=== PATIENT | male | born 1965 | race Two or more races ===

== ENCOUNTER 2020-02-25 08:02 | Outpatient (REF) | payer OTHER, SELFPAY | END 2020-02-25 08:03 | disposition home or self-care (01) | LOC: HO.LAB 08:02 | PROVIDERS: Visit Provider Internal Medicine | DX: Z20.828 Contact with and (suspected) exposure to other viral communicable diseases (principal) | CPT/HCPCS: C9803; U0003 ==

== ENCOUNTER → 2020-05-23 15:05 | Outpatient (BNVA) | payer OTHER, SELFPAY | PROVIDERS: PCP Internal Medicine; Visit Provider Nurse Practitioner Family ==

== ENCOUNTER 2020-05-27 10:48 | Outpatient (REF) | payer OTHER, SELFPAY ==
[2020-05-27 11:58] LABS: MANUAL DIFF FLAG NO
[2020-05-27 12:19] LABS: Basophils Absolute Auto 0.1 X10*3/uL (0.0-0.2); Basophils Percent Auto 0.9 % (0-2); Eosinophils Absolute Auto 0.3 X10*3/uL (0.0-0.4); Hematocrit 43.8 % (42-52); Hemoglobin 15.6 g/dl (14.0-18.0); Imm Gran Abs Auto 0.05 X10*3/uL (0.00-0.03); Imm Gran Pct Auto 0.7 % (0.0-0.4); Lymphocytes Absolute Auto 2.1 X10*3/uL (1.2-4.9); Lymphocytes Percent Auto 30.6 % (20-40); Mean Corpuscular HGB Conc 35.6 g/dl (31.0-36.0); Mean Corpuscular Hemoglobin 31.4 pg (27.0-33.0); Mean Corpuscular Volume 88.1 fL (80-98); Mean Platelet Volume 11.1 fL (9.4-12.4); Monocytes Absolute Auto 0.6 X10*3/uL (0.1-1.2); Neutrophils Absolute Auto 3.8 X10*3/uL (2.0-8.3); Neutrophils Percent Auto 54.8 % (45-73); Platelet Count 181 X10*3/uL (160-400); Red Blood Count 4.97 X10*6/uL (4.60-5.80); Red Cell Distribution Width 12.6 % (11.0-16.0); White Blood Count 6.8 X10*3/uL (4.8-10.8)
[2020-05-27 13:10] LABS: Alanine Aminotransferase 141 U/L (0-40); Albumin Level 4.6 g/dL (3.5-5.0); Alkaline Phosphatase 78 U/L (39-117); Anion Gap 12 (12-20); Aspartate Amino Transferase 66 U/L (5-37); Bilirubin Total 1.7 mg/dL (0.0-1.0); Blood Urea Nitrogen 11 mg/dL (9-16); Calcium 9.4 mg/dL (8.4-10.2); Carbon Dioxide 29 mmol/L (22-29); Chloride 105 mmol/L (96-108); Cholesterol 207 mg/dL; Estimated Glomerular Filt Rate > 60; Glucose Fasting 98 mg/dL (60-99); HDL Cholesterol 31 mg/dL; LDL Cholesterol Calculated 144 mg/dl; Potassium 4.2 mmol/L (3.3-5.1); Sodium 142 mmol/L (135-145); Total Protein 7.4 g/dL (6.5-8.0); Triglycerides 160 mg/dL
== END 2020-05-27 10:49 | disposition home or self-care (01) ==
LOC: HO.LAB 10:48
PROVIDERS: PCP Internal Medicine; Visit Provider Nurse Practitioner Family
DX: K21.9 Gastro-esophageal reflux disease without esophagitis (principal); E78.00 Pure hypercholesterolemia, unspecified
CPT/HCPCS: 36415; 80053; 80061; 85025

== ENCOUNTER → 2020-06-14 14:50 | Outpatient (BNVA) | payer OTHER, SELFPAY | PROVIDERS: PCP Internal Medicine; Visit Provider Internal Medicine | DX: Z01.810 Encounter for preprocedural cardiovascular examination (principal); R07.2 Precordial pain; Z79.899 Other long term (current) drug therapy | CPT/HCPCS: 93005 ==

== ENCOUNTER 2020-07-05 07:33 | Outpatient (REF) | payer OTHER, SELFPAY | END 2020-07-05 07:34 | disposition home or self-care (01) | LOC: HO.LAB 07:33 | PROVIDERS: Visit Provider Internal Medicine | DX: Z20.822 Contact with and (suspected) exposure to COVID-19 (principal) | CPT/HCPCS: C9803; U0003; U0005 ==

== ENCOUNTER → 2020-09-27 11:12 | Outpatient (REF) | payer OTHER, SELFPAY ==
--- NOTE | 2020-09-27 11:09 | CA_ITS ---
Acquisition Time: 2020-09-27 11:19:08 Total Exercise Time: 00:09:54 Test Indications: PREOP, CP Medications: SEE CHART Protocol: RON Max HR: 151 BPM 90% of Pred: 167 BPM Max BP: 160/082 mmHG Max Work Load: 11.7 METS Exercise stress test with exercise 9 min 54 sec of Ron protocol, with pleuritic type chest discomfort at baseline which improved during exercise and returned in recovery, with isolated PAC, with normotensive response to exercise, without EKG changes meeting criteria for ischemia. Echo images obtained by tech at rest and immediately post peak exercise. Definity contrast used. Test reviewed with Dr Nevarez. Referred By: Jese Martinez Overread By: JAVIER ANDREW
== END ==
LOC: HO.CARD 11:12
PROVIDERS: PCP Internal Medicine; Visit Provider Internal Medicine
DX: R07.2 Precordial pain (principal)
CPT/HCPCS: 93350; Q9957

== ENCOUNTER → 2020-10-10 12:47 | Outpatient (BNVA) | payer OTHER, SELFPAY | PROVIDERS: PCP Internal Medicine; Visit Provider Nurse Practitioner Family ==

== ENCOUNTER 2020-10-25 11:33 | Outpatient (REF) | payer OTHER, SELFPAY ==
--- NOTE | ~2020-10-25 | XR_ITS ---
EXAMINATION: XR CHEST CLINICAL INFORMATION: Other specified respiratory disorder. COMPARISON: Rib and chest radiograph dated 04/27/2009. TECHNIQUE: 2 views of the chest were obtained. FINDINGS: The lungs are clear. The cardiomediastinal silhouette is normal in size. There is no pleural effusion or pneumothorax. No acute osseous abnormality. XR/XR chest 2V IMPRESSION: No acute cardiopulmonary findings.
== END 2020-10-25 11:34 | disposition home or self-care (01) ==
LOC: HO.HMGCX 11:33
PROVIDERS: PCP Internal Medicine; Visit Provider Nurse Practitioner Family
DX: J98.8 Other specified respiratory disorders (principal)
CPT/HCPCS: 71046

== ENCOUNTER → 2020-11-27 15:01 | Outpatient (BNVA) | payer OTHER, SELFPAY | PROVIDERS: PCP Internal Medicine; Referring Provider Internal Medicine; Visit Provider Surgery ==

== ENCOUNTER → 2020-12-06 14:51 | Outpatient (BNVA) | payer OTHER, SELFPAY | PROVIDERS: PCP Internal Medicine; Visit Provider Nurse Practitioner Family ==

== ENCOUNTER → 2020-12-27 14:41 | Outpatient (BNVA) | payer OTHER, SELFPAY | PROVIDERS: PCP Internal Medicine; Visit Provider Surgery ==

== ENCOUNTER → 2021-02-27 16:16 | Outpatient (BNVA) | payer OTHER, SELFPAY | PROVIDERS: PCP Internal Medicine; Referring Provider Internal Medicine; Visit Provider Nurse Practitioner Family ==

== ENCOUNTER 2021-10-24 09:52 | Day surgery (SDC) | payer BC, SELFPAY ==
--- NOTE | 2021-10-23 08:55 | HO.ANESPROP2 ---
Documented by User: Nikkie Snow NP 10/23/21 08:57 HPI - Anesthesia Eval Consult details Narrative: 56yo M for Upper Endoscopy and Colonoscopy [facility] Active Problems Active Problems: All Active Problems (Updated 02/27/21 @ 16:43 by Cara Zapien [facility]) Pulmonary nodules (Acute) Skin lesion of neck (Acute) Cutaneous skin tags (Acute) Bronchitis (Acute) Respiratory infection (Acute) Precordial chest pain (Acute) Preoperative cardiovascular examination (Acute) Encounter for screening colonoscopy (Acute) Colonoscopy planned (Acute) High cholesterol (Acute) GERD (gastroesophageal reflux disease) (Acute) Past Medical History Medical History Colonoscopy planned Encounter for screening colonoscopy GERD (gastroesophageal reflux disease) High cholesterol Skin lesion of neck Family History Family History Father History of liver cancer Mother No problems noted. Surgical History Surgical History History of esophagogastroduodenoscopy (EGD) History of hand surgery Hx of colonoscopy Social History Social History (Updated 01/04/21 @ 15:33 by FABIEN Manzanares) Household Members: Spouse Housing: House Alcohol intake: current Alcohol intake frequency: holidays/special occasions only Patient Tobacco Use Status: Never used Tobacco e-Cigarette/Vaping Use: Never Used Second Hand Smoke Exposure: No Use of substances other than those prescribed or required for medical reasons: No Are you DNR?: No Advance Directives: No Advance Directives Information Provided: Yes service: No Current occupational status: employed 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 Stress ECHO 09/2020 Protocol: AMARJIT ? Max HR: 151 BPM? 90% of? Pred: 167 BPM Max BP: 160/082 mmHG Max Work Load: 11.7 METS ? Exercise stress test with exercise 9 min 54 sec of Amarjit protocol, with ?pleuritic type chest discomfort at baseline which improved during exercise and ?returned in recovery,? with isolated PAC, with normotensive response to ?exercise, without EKG changes meeting criteria for ischemia. Echo images ?obtained by tech at rest and immediately post peak exercise. Definity contrast ?used. Test reviewed with Dr Nevarez. ? ? STRESS ECHO : ? Technique : ? Images were obtained at rest and immediately post exercise within 1 minute 30 seconds. Definity contrast was used to enhance endicardial definition. Images were obtained in multiple views and compared side to side. ? Findings : ? At rest images were of adequate quality. LV systolic function is normal with normal wall motion. Post exercise images LV was not visualized. ? Findings: ? Non diagnostic study Assessment and Plan Assessment Anesthesia Assessment: Chart Reviewed Documented by User: Christina Bosch MD 10/24/21 10:44 [facility] Past Medical History Medical History Colonoscopy planned Encounter for screening colonoscopy GERD (gastroesophageal reflux disease) High cholesterol Skin lesion of neck Family History Family History Father History of liver cancer Mother No problems noted. Family history of problems with anesthesia: No Surgical History Surgical History History of esophagogastroduodenoscopy (EGD) History of hand surgery Hx of colonoscopy History of Problems with Anesthesia: No Social History Social History (Updated 01/04/21 @ 15:33 by FABIEN Manzanares) Household Members: Spouse Housing: House Alcohol intake: current Alcohol intake frequency: holidays/special occasions only Patient Tobacco Use Status: Never used Tobacco e-Cigarette/Vaping Use: Never Used Second Hand Smoke Exposure: No Use of substances other than those prescribed or required for medical reasons: No Are you DNR?: No Advance Directives: No Advance Directives Information Provided: Yes service: No Current occupational status: employed 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 Allergies Allergy/AdvReac Type Severity Reaction Status Date / Time No Known Allergies Allergy Mild NONE Verified 10/18/21 14:38 Home Medications Medication Instructions Recorded Confirmed Last Taken Type albuterol sulfate 90 mcg/actuation 2 puff PO Q4-6H PRN wheezing 10/18/21 10/18/21 Unknown History aerosol inhaler Exam Airway Mallampati Class: II TM Dist: >3cm Neck ROM: Full Heart: rrr Lungs: cta Assessment and Plan Assessment Anesthesia Assessment: Anesthesia Plan Discussed and Chart Reviewed Final Anesthetic Review Family History of Problems with Anesthesia: No History of Problems with Anesthesia: No NPO: Yes ASA Class: II Final Preanesthetic Review: No Changes in Pt Med Stat, Meds/Allgs Chart Reviewed and Consent Obtained/Reviewed Patient Risk: Intermediate Procedure Risk: Intermediate Anesthetic Plan Anesthetic Plan: MAC: Disposition: Standard PACU
[2021-10-24 10:17] VITALS: BMI 31.3
[2021-10-24 10:27] VITALS: BP 126/71; PULSE 78; RESP 17; TEMP 36.2; O2SAT 97
[2021-10-24 10:30] VITALS: BMI 31.3
[2021-10-24] MEDS: Lactated Ringers 1,000 ML 100 ML IVCONT (10:36)
--- NOTE | 2021-10-24 10:37 | MHC.SHP ---
Pre-Procedural Eval Section A Date of Service: 10/24/21 Section B Chief Complaint: screening,reflux disease Relevant Family History (Specify if Yes): No Relevant Social History: None Present Medications: see Short Stay Collaborative assessment Medical History: Significant History (GERD (gastroesophageal reflux disease) High cholesterol Skin lesion of neck) History of Previous Operations: Relevant previous surgery/procedure and date(s) (History of esophagogastroduodenoscopy (EGD) History of hand surgery Hx of colonoscopy) Allergies: Allergies Allergy/AdvReac Type Severity Reaction Status Date / Time No Known Allergies Allergy Mild NONE Verified 10/18/21 14:38 Review of Systems Sugical H&P ROS: Negative: Constitution, Cardiovascular, Respiratory, Neurological, Psychiatric, Hem-Onc, Allergic/Immunologic, Gastrointestinal, Genitourinary, Musculoskeletal, Integumentary, Endocrine and Eyes/Ears/Nose/Throat Exam Surgical H&P Exam: Normal: HEENT, Normal: Heart, Normal: Lungs, Normal: Extremities, Normal: Abdomen, Normal: Skin and Normal: Neurological Plan Diagnosis/Plan: Unchanged I have reviewed the history and physical and performed a pertinent physical examination on my patient. No changes have occurred unless specified.
--- NOTE | 2021-10-24 10:39 | P.OP_ITS ---
Operative Note Operative Note Date of Service: 10/24/21 Narrative: Operative Information Procedure Description: EGD, Colonoscopy Indication: reflux and screning colonoscopy Anesthesia: MAC FLEXIBLE TRANSORAL UPPER GASTROINTESTINAL ENDOSCOPY AND COLONOSCOPY PROCEDURE NOTE UPPER ENDOSCOPY Consent: Indications for the procedure and potential complications of bleeding, perforation, reaction to medications and missed diagnosis were discussed with the patient and informed consent was obtained. Instrument: Olympus GIF H 190 J mid size upper endoscope Monitoring: Vital signs and clinical assessment, continuous EKG monitoring, Pulse oximetry, Carbon Dioxide monitoring and blood pressure monitoring were done throughout the procedure. Procedure: The patient was placed in the left lateral decubitis position and pre-procedure medications were administered and a bite block was placed. The endoscope was inserted into the mouth and advanced under direct vision to the third part of duodenum. A careful inspection was made as the upper endoscope was withdrawn including a retroflexed examination of the proximal stomach; Findings and interventions are described below. Findings: Larynx:normal Esophagus: GE junction at 40 cm, diaphragm hiatus at 40 cm, v mild esophagitis, bx taken from GEJ Stomach: Normal mucosa. Biopsies were obtained. Grade 2 flap valve on retroflexed examination of the cardia. Duodenum: Normal bulb and descending duodenum, Intervention: Biopsies as noted above COLONOSCOPY Instrument: Olympus variable stiffness pediatric scope 190L Colonoscopy Monitoring: Vital signs and clinical assessment, continuous EKG monitoring, Pulse oximetry, Carbon Dioxide monitoring and blood pressure monitoring were done throughout the procedure. Colon withdrawal time was 9 minutes. Procedure: The patient was placed in the left lateral decubitis position and pre-procedure medications were administered. After a digital rectal examination of the ano-rectum, the video colonoscope was inserted into the rectum and advanced through the colon to the cecum/TI. The colonoscope was slowly withdrawn in a retrograde panoramic fashion and the colon mucosa was carefully examined including a retroflexed view of the rectum. Findings and interventions are described below. Procedure Difficulty: easy Findings: Terminal Ileum-normal right sided retroflexion- nml Cecum:normal Ascending Colon: normal Transverse Colon -normal Descending Colon:normal Sigmoid Colon: normal Rectum: Retroflexion with small internal hemorrhoids, grade I Anorectum - normal Colon preparation: [place] Bowel Preparation Scale Right colon; 3 Transverse colon: 3 Left colon; 3 (0 = Unprepared colon segment with mucosa not seen due to solid stool that cannot be cleared. 1 = Portion of mucosa of the colon segment seen, but other areas of the colon segment not well seen due to staining, residual stool and/or opaque liquid. 2 = Minor amount of residual staining, small fragments of stool and/or opaque liquid, but mucosa of colon segment seen well. 3 = Entire mucosa of colon segment seen well with no residual staining, small fragments of stool or opaque liquid) Impression and Post Procedure Diagnosis: Endoscopy Findings: mild esophagitis Colonoscopy Findings: internal hemorrhoids Plan: Await Pathology results Repeat Colonoscopy in 10 years or earlier if clinically indicated High fiber diet leaflet avoid straining at stool, epsom salts and sitz bath, anusol supps or cream cont with PPI Above findings were reviewed with the patient and relevant handouts were provided if indicated.
[2021-10-24 12:19] VITALS: BP 114/71; PULSE 67; RESP 16; TEMP 36.1; O2SAT 95
[2021-10-24 12:34] VITALS: BP 140/62; PULSE 63; RESP 16; O2SAT 97
[2021-10-24 12:50] VITALS: BP 152/86; PULSE 66; RESP 16; TEMP 36.2; O2SAT 97
== END 2021-10-24 15:35 | disposition home or self-care (01) ==
PROVIDERS: PCP Internal Medicine; Visit Provider Internal Medicine Gastroenterology
PROC: (CPT 45378; principal; 2021-10-24 11:50)
DX: Z12.11 Encounter for screening for malignant neoplasm of colon (principal); K64.0 First degree hemorrhoids; K21.9 Gastro-esophageal reflux disease without esophagitis; K20.80 Other esophagitis without bleeding; K44.9 Diaphragmatic hernia without obstruction or gangrene; E78.00 Pure hypercholesterolemia, unspecified
CPT/HCPCS: 45378; 43239; 88305; 88342

== ENCOUNTER 2021-11-28 11:07 | Outpatient (REF) | payer BC, SELFPAY ==
[2021-11-28 12:59] LABS: Alanine Aminotransferase 135 U/L (0-40); Albumin Level 4.7 g/dL (3.5-5.0); Alkaline Phosphatase 80 U/L (39-117); Aspartate Amino Transferase 73 U/L (5-37); Bilirubin Direct 0.5 mg/dL (0.0-0.5); Bilirubin Total 1.6 mg/dL (0.0-1.0); Total Protein 7.7 g/dL (6.5-8.0)
== END 2021-11-28 11:08 | disposition home or self-care (01) ==
LOC: HO.LAB 11:07
PROVIDERS: PCP Internal Medicine; Visit Provider Nurse Practitioner Family
DX: R10.9 Unspecified abdominal pain (principal)
CPT/HCPCS: 36415; 80076

== ENCOUNTER 2021-12-13 13:30 | Outpatient (REF) | payer BC, SELFPAY | END 2021-12-13 13:31 | disposition home or self-care (01) | LOC: HO.LNP 13:30 | PROVIDERS: PCP Internal Medicine; Visit Provider Surgery | DX: L91.8 Other hypertrophic disorders of the skin (principal) | CPT/HCPCS: 11200; 11201; 11421; 88304; 88305 ==

== ENCOUNTER 2022-02-19 16:17 | Outpatient (REF) | payer BC, SELFPAY ==
[2022-02-19 17:32] LABS: INTERNATIONAL NORM RATIO 1.1 (0.9-1.1); Prothrombin Time 12.7 SEC (10.0-13.1)
[2022-02-19 18:02] LABS: C Reactive Protein 0.18 mg/dL (< or = 0.50); Ferritin 296 ng/mL (20-250); Gamma Glutamyl Transpeptidase 44 U/L (11-51); Iron 90 mcg/dL (45-160); Percent Iron Saturation 27 % (15-50); Total Iron Binding Capacity 329 mcg/dL (228-428); Unsaturated Iron Binding 239 ug/dL
[2022-02-20 07:47] LABS: HBS Num1 201.96 mIU/mL (0-7.99); HBc Num1 0.17 S/CO (0.00-0.79); HIV AB/AG Nonreactive (Nonreactive); HIV Num 1 0.07 S/CO (0.00-0.99); Hepatitis A Antibody IgM 0.13 Index (0-0.79); Hepatitis B Core Antibody Nonreactive (Nonreactive); Hepatitis B Surface Antigen Negative (Negative); ~HepC Num1 0.26 S/CO (0.00-0.79); ~Hepatitis A Antibody IgM Nonreactive (Nonreactive); ~Hepatitis B Surface Antibody REACTIVE (Nonreactive); ~Hepatitis C Antibody Nonreactive (Nonreactive)
[2022-02-21 13:43] LABS: Alpha Fetoprotein 5.4 ng/mL (<6.1)
[2022-02-21 14:32] LABS: Ceruloplasmin 23 mg/dL (18-36)
[2022-02-25 16:49] LABS: Smooth Muscle Antibody 38 U (<20)
[2022-02-28 11:44] LABS: Mitochondrial Antibodies NEGATIVE (NEGATIVE)
== END 2022-02-19 16:18 | disposition home or self-care (01) ==
LOC: HO.LAB 16:17
PROVIDERS: PCP Internal Medicine; Visit Provider Nurse Practitioner Family
DX: R79.89 Other specified abnormal findings of blood chemistry (principal); R74.8 Abnormal levels of other serum enzymes; K92.2 Gastrointestinal hemorrhage, unspecified; K58.9 Irritable bowel syndrome, unspecified
CPT/HCPCS: 36415; 82105; 82390; 82728; 82977; 83540; 85610; 86015; 86140; 86255; 86256; 86704; 86706; 86709; 86803; 87340; 87389

== ENCOUNTER 2022-04-04 08:52 | Outpatient (REF) | payer BC, SELFPAY ==
--- NOTE | ~2022-04-04 | US_ITS ---
EXAMINATION: US COMPLETE ABDOMEN WITH LIVER ELASTOGRAPHY CLINICAL INFORMATION: Abnormal findings of blood chemistry. COMPARISON: None. TECHNIQUE: Real-time imaging of the abdominal viscera. Noninvasive ultrasound liver fibrosis assessment is performed using Scott ElastPQ point quantification shear wave elastography (2D-SWE) with a C5-2 MHz transducer. Multiple elastography samples are obtained. FINDINGS: PANCREAS: The visualized pancreatic head and body are normal in appearance. The tail of the pancreas is obscured from visualization by the overlying bowel gas. ABDOMINAL AORTA: The proximal, middle, and distal aortic segments are normal in caliber. INFERIOR VENA CAVA: Visualized portions are normal. LIVER: Normal. The liver demonstrates normal size, contour and increased echogenicity. No focal lesion or intrahepatic biliary duct dilatation. The right lobe measures 13.5 cm in length. The left lobe measures 10.2 cm in length. Portal flow is hepatopedal/ Shear wave liver elastography median stiffness is 12.7 m/s (reference: normal median stiffness is 1.3 m/s or less). IQR/median stiffness to assess sampling precision is 0.13 (reference: good quality data set is IQR/median stiffness of 0.15 or less). GALLBLADDER: Normal. The gallbladder is physiologically distended without evidence of stones, sludge, polyps, wall thickening or pericholecystic fluid. COMMON BILE DUCT: Normal in caliber measuring 0.3 cm in diameter. RIGHT KIDNEY: Normal. No hydronephrosis. No renal calculi or focal parenchymal lesions. The kidney measures 11.2 cm in maximum dimension. LEFT KIDNEY: Normal. No hydronephrosis. No renal calculi or focal parenchymal lesions. The kidney measures 11.4 cm in maximum dimension. SPLEEN: Normal. The spleen measures 12.0 cm in maximum dimension. FREE FLUID: None. US/US abdomen comp w elastography IMPRESSION: 1. Mild hepatic steatosis 2. Liver elastography: Median liver stiffness measures 1.27 m/s corresponding to high probability of normal. REFERENCE: Society of Radiologists in Ultrasound Liver Stiffness Thresholds (2020): LIVER STIFFNESS THRESHOLDS: *Liver Stiffness equal or less than 1.3 m/s: High probability of being normal. *Liver Stiffness less than 1.7 m/s: In the absence of other known clinical signs, rules out compensated advanced chronic liver disease. *Liver Stiffness 1.7-2.1 m/s: Suggestive of compensated advanced chronic liver disease but need further test for confirmation. *Liver Stiffness over 2.1 m/s: Rules in compensated advanced chronic liver disease. *Liver Stiffness over 2.4 m/s: Suggestive of clinically significant portal hypertension. QUALITY OF DATA SET: *IQR/Median value equal or less than 0.15 implies a quality data set. *IQR/Median value over 0.15 implies a poor quality data set. SIGNIFICANT CHANGE FROM PRIOR EXAM: Significant change if liver stiffness measurement is 10% or greater from prior exam. OTHER CONSIDERATIONS: The stage of liver fibrosis may be overestimated in the setting of acute hepatitis, liver inflammation, elevated liver function tests, hepatic vascular congestion, obstructive cholestasis, non-fasting state, and infiltrative diseases such as amyloidosis and lymphoma. In some patients with NAFLD, the liver stiffness thresholds for compensated advanced chronic liver disease may be lower. In causes other than viral hepatitis and NAFLD, liver stiffness thresholds are not well established.
== END 2022-04-04 08:53 | disposition home or self-care (01) ==
LOC: HO.US 08:52
PROVIDERS: PCP Internal Medicine; Visit Provider Nurse Practitioner Family
DX: R79.89 Other specified abnormal findings of blood chemistry (principal)
CPT/HCPCS: 76705; 76981

== ENCOUNTER 2022-05-07 15:49 | Outpatient (REF) | payer BC, SELFPAY ==
[2022-05-07 17:32] LABS: Alanine Aminotransferase 129 U/L (0-40); Albumin Level 4.4 g/dL (3.5-5.0); Alkaline Phosphatase 76 U/L (39-117); Aspartate Amino Transferase 87 U/L (5-37); Bilirubin Direct 0.3 mg/dL (0.0-0.5); Bilirubin Total 1.2 mg/dL (0.0-1.0)
== END 2022-05-07 15:50 | disposition home or self-care (01) ==
LOC: HO.LAB 15:49
PROVIDERS: PCP Internal Medicine; Visit Provider Nurse Practitioner Family
DX: R10.9 Unspecified abdominal pain (principal); R79.89 Other specified abnormal findings of blood chemistry; K21.9 Gastro-esophageal reflux disease without esophagitis; Z83.79 Family history of other diseases of the digestive system
CPT/HCPCS: 36415; 80076; 81256

== ENCOUNTER → 2022-08-23 08:06 | Outpatient (BNVA) | payer SELFPAY | PROVIDERS: PCP Internal Medicine ==

== ENCOUNTER → 2022-08-27 15:58 | Outpatient (BNVA) | payer BC, SELFPAY | PROVIDERS: PCP Internal Medicine; Visit Provider Nurse Practitioner Family ==

== ENCOUNTER 2023-02-18 15:58 | Outpatient (AMB) | payer BC, SELFPAY ==
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
[2023-02-18 16:06] VITALS: BP 144/78; PULSE 72; BMI 36.6
== END 2023-02-18 16:28 | disposition home or self-care (01) ==
PROVIDERS: PCP Internal Medicine; Visit Provider Nurse Practitioner Family
DX: Z83.79 Family history of other diseases of the digestive system (principal); Z80.0 Family history of malignant neoplasm of digestive organs; R74.01 Elevation of levels of liver transaminase levels; K21.9 Gastro-esophageal reflux disease without esophagitis
CPT/HCPCS: 99213

== ENCOUNTER → 2023-02-18 15:58 | Outpatient (BNVA) | payer BC, SELFPAY | PROVIDERS: PCP Internal Medicine; Visit Provider Nurse Practitioner Family ==

== ENCOUNTER 2023-04-18 07:53 | Outpatient (REF) | payer BC, SELFPAY ==
--- NOTE | ~2023-04-18 | US_ITS ---
EXAMINATION: US ABDOMEN LIMITED CLINICAL INFORMATION: Other specified abnormal findings of blood chemistry. COMPARISON: Ultrasound abdomen complete 04/04/2022. TECHNIQUE: Real-time imaging of the right upper quadrant abdominal viscera. FINDINGS: PANCREAS: Not well seen due to shadowing from overlying bowel gas. LIVER: The liver is normal in size. The liver contour is normal. Increased parenchymal echogenicity. No focal hepatic lesion. There is no intrahepatic biliary duct dilatation seen. GALLBLADDER: Normal. The gallbladder is physiologically distended without evidence of stones, sludge, polyps, wall thickening or pericholecystic fluid. COMMON BILE DUCT: Normal in caliber measuring 0.2 cm in diameter. RIGHT KIDNEY: Multiple nonobstructing punctate hyperechoic foci that could represent calculi versus vascular calcifications. No hydronephrosis or focal parenchymal lesions. The kidney measures 10.8 cm in maximum dimension. FREE FLUID: None. US/US abdomen limited IMPRESSION: 1. Increased parenchymal echogenicity of the liver is a nonspecific finding but most commonly on the basis of diffuse hepatocellular disease such as hepatic steatosis. 2. Multiple punctate hyperechoic foci in the right kidney could represent nonobstructing calculi versus vascular calcifications.
== END 2023-04-18 07:54 | disposition home or self-care (01) ==
LOC: HO.US 07:53
PROVIDERS: PCP Internal Medicine; Visit Provider Nurse Practitioner Family
DX: R79.89 Other specified abnormal findings of blood chemistry (principal)
CPT/HCPCS: 76705

== ENCOUNTER 2023-07-09 10:03 | Outpatient (AMB) | payer BC, SELFPAY ==
--- NOTE | 2023-07-09 10:06 | MHC.PC.OV ---
Vital Signs 07/09/23 10:08 Height 5 ft 7 in Weight 230 lb 2 oz BMI 36.0 BP 120/82 Blood Pressure Location Lt brachial Position Sitting Pulse 82 Pulse Source Pulse Oximeter Pulse Oximetry (%) 98 Oxygen Delivery Method Room Air Intake Visit Reasons: Bio life forms Intake Note: Patient is here today for Bio Life forms to be filled out. Representative Personal Service Required: No Chemistry Specialist: Not Required per policy Accompanied by: Self / Same As Patient Allergies No Known Allergies Allergy (Mild, Verified 07/09/23 10:11) NONE Tobacco use date assessed: 07/09/23 Dental Screening Dental Screen Date: 07/09/23 Did you have a dental visit in the last 12 months?: Yes Did you have a dental problem in the last 6 months where you did not have access to dental care?: No Was dental information given to patient?: Patient has dentist HPI HPI Comments History of Present Illness Details 57-year-old male presents to the office to discuss his medical conditions. Donates plasma twice a week. For him to continue to donate plasma, he needs a clearance certificate. Patient is at baseline state of health. Able to function and do all activities of daily living. Minimal exercise. Nonsmoker and minimal consumption of alcohol. [facility] Medical History (Updated 07/09/23 @ 11:09 by Louis Marcum MD) Obstructive sleep apnea Family history of cirrhosis of liver Family history of liver cancer Transaminitis Skin lesion of neck Encounter for screening colonoscopy Colonoscopy planned High cholesterol GERD (gastroesophageal reflux disease) Surgical History History of dental surgery History of surgical removal of skin lesion (~12/13/21) History of hand surgery History of esophagogastroduodenoscopy (EGD) Hx of colonoscopy Family History Father History of liver cancer Mother No problems noted. 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 1. Little interest or pleasure in doing things: not at all 2. Feeling down, depressed, or hopeless: not at all 3. Trouble falling or staying asleep, or sleeping too much: not at all 4. Feeling tired or having little energy: not at all 5. Poor appetite or overeating: not at all 6. Feeling bad about yourself - or that you are a failure or have let yourself or your family down: not at all 7. Trouble concentrating on things, such as reading the newspaper or watching television: not at all 8. Moving or speaking so slowly that other people could have noticed. Or the opposite - being so fidgety or restless that you have been moving around a lot more than usual: not at all 9. Thoughts that you would be better off or of hurting yourself in some way: not at all Total score: 0 Depression Screening Interpretation: Negative Depression Screening Done: Yes Source: Developed by Drs. Jair Tolliver, Mignon Cespedes, Eddie Renee and colleagues, with an educational rhianna from [employer]. Thrive Questionnaire Date Thrive assessed: 07/09/23 I am a: Patient What is your living situation today?: I have a steady place to live Within the past 12 months, did the food you bought not last and you didn't have the money to get more?: Never true Within the past 12 months, did you worry whether your food would run out before you got money to buy more?: Never true Do you have trouble paying for medicines?: No Do you have trouble getting transportation to medical appointments?: No Do you have trouble paying your heating and electricity bill?: No Do you have trouble taking care of your child, family member or friend?: No Do you have trouble with day-to-day activities such as bathing, preparing meals, shopping, managing finances, etc.?: No Are you currently unemployed and looking for a job?: No Are you interested in more education?: No Currently or been in a relationship where the following occur: no concerns reported THRIVE Score: 0 AUDIT C Alcohol Use Questionnaire (AUDIT-C) 1. How often do you have a drink containing alcohol?: Monthly or less 2. How many drinks containing alcohol do you have on a typical day when you are drinking?: 1 or 2 Total Score: 1 AGATHA-7 AMB Questionnaire AGATHA-7 Date AGATHA - 7 assessed: 07/09/23 Feeling nervous, anxious, or on edge: 0 = Not at all Not being able to stop or control worryin = Not at all Worrying too much about different things: 0 = Not at all Trouble relaxin = Not at all Being so restless that it is hard to sit still: 0 = Not at all Becoming easily annoyed or irritable: 0 = Not at all Feeling afraid as if something awful might happen: 0 = Not at all Total AGATHA-7 score (0-4 normal; 5-9 mild; 10-14 moderate; 15-21 severe): 0 Source: Developed by Drs. Jair Tolliver, Mignon Cespedes, Eddie Renee and colleagues, with an educational rhianna from [employer]. Physical exam (Primary Care) Vital Signs: Last Vital Signs Pulse 82 07/09/23 10:08 BP 120/82 07/09/23 10:08 Pulse Ox 98 07/09/23 10:08 Oxygen Delivery Method Room Air 07/09/23 10:08 BMI result Body Mass Index 36.0 Tobacco/Smoking Status: Tobacco use Status Tobacco use date assessed 07/09/23 07/09/23 10:15 Patient Tobacco Use Status Never used Tobacco 07/09/23 10:15 e-Cigarette/Vaping Use Never Used 07/09/23 10:15 PHQ-9: PHQ-9 Score PHQ-9: Total score 0 07/09/23 10:15 Depression Screening Interpretation: Negative Thrive Assessment: Date of Thrive Assessment Date Thrive assessed 07/09/23 07/09/23 10:15 Currently or been in a relationship where the following occur: no concerns reported Const General: cooperative and healthy appearing Nutritional Appearance: well nourished Orientation/consciousness: patient oriented x3 Limitations: no limitations HENMT Head: Yes normal to inspection Eyes General: appearance normal, both eyes and all related structures Neck Neck: Yes normal visual inspection Chest Chest palpation & inspection: normal palpation of entire chest wall Resp Effort & Inspection: normal respiratory effort Neuro General: patient oriented x3 Assessment and Plan Assessment & Plan (1) GERD (gastroesophageal reflux disease): Code(s): K21.9 - Gastro-esophageal reflux disease without esophagitis Qualifiers: Esophagitis presence: esophagitis presence not specified Qualified Code(s): K21.9 - Gastro-esophageal reflux disease without esophagitis Plan: Condition is stable. Continue current medications. Blood work has been ordered. (2) High cholesterol: Code(s): E78.00 - Pure hypercholesterolemia, unspecified (3) Obstructive sleep apnea: Code(s): G47.33 - Obstructive sleep apnea (adult) (pediatric) Plan: Patient uses CPAP at home. Will call with results of the blood work. Orders: Orders Lipid Panel Today E78.00 - Pure hypercholesterolemia, unspecified, K21.9 - Gastro-esophageal reflux disease without esophagitis Thyroid Stimulating Hormone Today E78.00 - Pure hypercholesterolemia, unspecified, K21.9 - Gastro-esophageal reflux disease without esophagitis UA and rflx microscopic Today E78.00 - Pure hypercholesterolemia, unspecified, K21.9 - Gastro-esophageal reflux disease without esophagitis Basic Metabolic Panel Today E78.00 - Pure hypercholesterolemia, unspecified, K21.9 - Gastro-esophageal reflux disease without esophagitis Complete Blood Count no Diff Today E78.00 - Pure hypercholesterolemia, unspecified, K21.9 - Gastro-esophageal reflux disease without esophagitis Liver Panel Today E78.00 - Pure hypercholesterolemia, unspecified, K21.9 - Gastro-esophageal reflux disease without esophagitis Medications: Refilled omeprazole 40 mg PO DAILY 90 caps 2RF K21.9 - Gastro-esophageal reflux disease without esophagitis Coding Level of Care Code Est Pt Level 4 (10984) Diagnoses Gastroesophageal reflux disease, unspecified whether esophagitis present K21.9 Esophagitis presence: esophagitis presence not specified High cholesterol E78.00 Obstructive sleep apnea G47.33
[2023-07-09 10:08] VITALS: BP 120/82; PULSE 82; O2SAT 98; BMI 36.0
== END 2023-07-09 11:00 | disposition home or self-care (01) ==
PROVIDERS: PCP Internal Medicine; Visit Provider Internal Medicine
DX: K21.9 Gastro-esophageal reflux disease without esophagitis (principal); E78.00 Pure hypercholesterolemia, unspecified; G47.33 Obstructive sleep apnea (adult) (pediatric)
CPT/HCPCS: 99214

== ENCOUNTER 2023-07-30 06:16 | Outpatient (REF) | payer BC, SELFPAY ==
[2023-07-30 07:53] LABS: Hematocrit 41.9 % (42.0-52.0); Hemoglobin 15.2 g/dl (14.0-18.0); Mean Corpuscular HGB Conc 36.3 g/dl (31.0-36.0); Mean Corpuscular Hemoglobin 31.4 pg (27.0-33.0); Mean Corpuscular Volume 86.6 fL (80.0-98.0); Mean Platelet Volume 10.6 fL (9.4-12.4); Platelet Count 185 X10*3/uL (160-400); Red Blood Count 4.84 X10*6/uL (4.60-5.80); Red Cell Distribution Width 12.6 % (11.0-16.0); White Blood Count 7.1 X10*3/uL (4.8-10.8)
[2023-07-30 08:08] LABS: Appearance Urine Clear; Color Urine Yellow; Glucose Urine UA Negative (Negative); Leukocyte Esterase Urine Negative (Negative); Nitrite Urine Negative (Negative); PH 6.5 (5.0-9.0); Specific Gravity - Urine 1.015 (1.005-1.025); Urine Blood Negative (Negative); Urine Ketones Negative (Negative); Urine Protein Negative (Neg-Trace)
[2023-07-30 08:47] LABS: Alanine Aminotransferase 94 U/L (0-40); Albumin Level 4.2 g/dL (3.5-5.0); Alkaline Phosphatase 82 U/L (39-117); Anion Gap 13 (12-20); Aspartate Amino Transferase 49 U/L (5-37); Bilirubin Direct 0.2 mg/dL (0.0-0.5); Bilirubin Total 0.7 mg/dL (0.0-1.0); Blood Urea Nitrogen 8 mg/dL (9-16); Calcium 9.2 mg/dL (8.4-10.2); Carbon Dioxide 26 mmol/L (22-29); Chloride 105 mmol/L (96-108); Cholesterol 168 mg/dL (<200); Estimated Glomerular Filt Rate > 60; Glucose Random 98 mg/dL (60-115); HDL Cholesterol 32 mg/dL (>40); LDL Cholesterol Calculated 94 mg/dL (<100); Potassium 3.1 mmol/L (3.3-5.1); Sodium 141 mmol/L (135-145); Total Protein 7.1 g/dL (6.5-8.0); Triglycerides 214 mg/dL (<150)
== END 2023-07-30 06:17 | disposition home or self-care (01) ==
LOC: HO.LAB 06:16
PROVIDERS: PCP Internal Medicine; Visit Provider Internal Medicine
DX: K21.9 Gastro-esophageal reflux disease without esophagitis (principal); E78.00 Pure hypercholesterolemia, unspecified
CPT/HCPCS: 36415; 80048; 80061; 80076; 81003; 84443; 85027

== ENCOUNTER 2023-08-19 15:07 | Outpatient (AMB) | payer BC, SELFPAY ==
--- NOTE | 2023-08-19 15:12 | A.OFFPC_ITS ---
Vital Signs 08/19/23 15:13 Height 5 ft 7 in Weight 229 lb BMI 35.9 BP 128/68 Blood Pressure Location Lt brachial Position Sitting Pulse 71 Pulse Source Pulse Oximeter Pulse Oximetry (%) 98 Oxygen Delivery Method Room Air Intake Visit Reasons: Neck skin getting dark/DM concern Intake Note: Patient is here to follow up on Neck skin getting dark, lab results. Electrical Installation Supervisor Required: No Marzipan Molder: Not Required per policy Accompanied by: Self / Same As Patient Allergies No Known Allergies Allergy (Mild, Verified 08/19/23 16:50) NONE Medication List - Last Reconciled 08/19/23 by Louis Marcum MD azithromycin take 500 mg today (day 1), then 250 mg for 4 days (days 2-5) PO famotidine (Pepcid) 20 mg PO BEDTIME omeprazole 40 mg PO DAILY potassium chloride 20 mEq (15 mL) PO DAILY Tobacco use date assessed: 08/19/23 Dental Screening Dental Screen Date: 07/09/23 HPI Neck skin getting dark/DM concern HPI Details 58-year-old male presents to the office for a follow-up visit. Patient would like to have a rash on the side of the neck evaluated. Darkened area with skin thickening. No symptoms of itching or discomfort. Blood work done during the last office visit showed low potassium. Patient took supplementation for a few days and then stopped. It was complaining of epigastric discomfort and belching. Symptoms have subsided. In addition, patient has been complaining of a sore throat with sinus congestion. Difficulty swallowing. Postnasal drip with no fever or chills. [facility] Medical History (Updated 07/09/23 @ 11:09 by Louis Marcum MD) Obstructive sleep apnea Family history of cirrhosis of liver Family history of liver cancer Transaminitis Skin lesion of neck Encounter for screening colonoscopy Colonoscopy planned High cholesterol GERD (gastroesophageal reflux disease) Surgical History History of dental surgery History of surgical removal of skin lesion (~12/13/21) History of hand surgery History of esophagogastroduodenoscopy (EGD) Hx of colonoscopy Family History Father History of liver cancer Mother No problems noted. 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 Jair Tolliver, Mignon Cespedes, Eddie Renee and colleagues, with an educational rhianna from [employer]. Physical exam (Primary Care) Vital Signs: Last Vital Signs Pulse 71 08/19/23 15:13 BP 128/68 08/19/23 15:13 Pulse Ox 98 08/19/23 15:13 Oxygen Delivery Method Room Air 08/19/23 15:13 Care Plan Goal for BP management: Blood pressure is in range. BMI result Body Mass Index 35.9 Tobacco/Smoking Status: Tobacco use Status Tobacco use date assessed 08/19/23 08/19/23 15:15 Patient Tobacco Use Status Never used Tobacco 08/19/23 15:15 e-Cigarette/Vaping Use Never Used 08/19/23 15:15 Thrive Assessment: Date of Thrive Assessment Date Thrive assessed 07/09/23 08/19/23 15:15 Const General: cooperative and healthy appearing Nutritional Appearance: well nourished Orientation/consciousness: patient oriented x3 Limitations: no limitations HENMT Head: Yes normal to inspection Eyes General: appearance normal, both eyes and all related structures Neck Neck: Yes normal visual inspection Chest Chest palpation & inspection: normal palpation of entire chest wall Resp Effort & Inspection: normal respiratory effort Skin Other: Neck: Black and, thickened skin on the side of the neck with striae Neuro General: patient oriented x3 Results AMB Hemoglobin A1c AMB Hemoglobin A1c 5.3 % Last Edit by FABIEN Manzanares on 08/19/23 16:14 Results Reviewed Results Reviewed: Laboratory Last Values Hgb A1c (Clinic) 5.3 % (4.0-6.0) 08/19/23 16:10 Assessment and Plan Assessment & Plan (1) Hypokalemia: Code(s): E87.6 - Hypokalemia Plan: Repeat blood work has been ordered. Will call with the results. (2) Rash: Code(s): R21 - Rash and other nonspecific skin eruption Plan: Differential diagnosis includes acanthosis nigricans. A1c was not in diabetic or prediabetic range. (3) Upper respiratory tract infection: Code(s): J06.9 - Acute upper respiratory infection, unspecified Plan: Antibiotics ordered. Increase fluid intake. Tylenol for aches and pains. If symptoms worsen, follow-up here for a recheck. Orders: Orders Basic Metabolic Panel Today E87.6 - Hypokalemia AMB Hemoglobin A1c Today Z13.9 - Encounter for screening, unspecified Medications: New azithromycin take 500 mg today (day 1), then 250 mg for 4 days (days 2-5) PO 6 tabs 0RF Coding Level of Care Code Est Pt Level 4 (07784) Complex EM visit Add On G2211 Diagnoses Hypokalemia E87.6 Rash R21 Upper respiratory tract infection J06.9
[2023-08-19 15:13] VITALS: BP 128/68; PULSE 71; O2SAT 98; BMI 35.9
== END 2023-08-19 16:51 | disposition home or self-care (01) ==
PROVIDERS: PCP Internal Medicine; Visit Provider Internal Medicine
DX: E87.6 Hypokalemia (principal); R21 Rash and other nonspecific skin eruption; J06.9 Acute upper respiratory infection, unspecified; Z13.9 Encounter for screening, unspecified
CPT/HCPCS: 83036; 99214

== ENCOUNTER 2023-08-20 15:46 | Outpatient (AMB) | payer BC, SELFPAY ==
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
[2023-08-20 15:58] VITALS: BP 150/78; PULSE 76; O2SAT 97; BMI 35.8
== END 2023-08-20 16:21 | disposition home or self-care (01) ==
PROVIDERS: PCP Internal Medicine; Visit Provider Nurse Practitioner Family
DX: Z83.79 Family history of other diseases of the digestive system (principal); Z80.0 Family history of malignant neoplasm of digestive organs; R74.01 Elevation of levels of liver transaminase levels; K21.9 Gastro-esophageal reflux disease without esophagitis
CPT/HCPCS: 99213

== ENCOUNTER → 2023-08-20 15:46 | Outpatient (BNVA) | payer BC, SELFPAY | PROVIDERS: PCP Internal Medicine; Visit Provider Nurse Practitioner Family ==

== ENCOUNTER 2024-01-01 14:24 | Outpatient (AMB) | payer BC, SELFPAY ==
--- NOTE | 2024-01-01 14:42 | AM.OFFWIN_ITS ---
Intake Vital Signs 01/01/24 14:43 Height 5 ft 7 in Weight 228 lb BMI 35.7 BP 106/70 Blood Pressure Location Rt brachial Position Sitting Pulse 72 Pulse Source Pulse Oximeter Pulse Oximetry (%) 98 Oxygen Delivery Method Room Air Intake Visit Reasons: EP Pain in lt neck/shoulder Intake Note: Patient here for neck and shoulder pain that has been going on for a few weeks. Patient Tobacco Use Status: Never used Tobacco Allergies No Known Allergies Allergy (Mild, Verified 01/01/24 14:44) NONE Do you need a note to return to daycare/school/sports/work: No HPI HPI Comments History of Present Illness Details Patient is a 58-year-old male complaining of 10 days of left-sided neck pain that radiates into his left shoulder. He states it feels like there is a knot underneath his shoulder blade. 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 He tells me he can move left and right okay with no problem right now. He does have an appointment on January 11 with his PCP. He has not tried taking any medications or doing anything to make it feel better. He denies any injury. He states he just woke up 1 day and it felt like this [facility] Medical History Obstructive sleep apnea Family history of cirrhosis of liver Family history of liver cancer Transaminitis Skin lesion of neck Encounter for screening colonoscopy Colonoscopy planned High cholesterol GERD (gastroesophageal reflux disease) Surgical History History of dental surgery History of surgical removal of skin lesion (~12/13/21) History of hand surgery History of esophagogastroduodenoscopy (EGD) Hx of colonoscopy Family History Father History of liver cancer Mother No problems noted. 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 Cognitive needs: No Hearing needs: No Vision needs: No Review of Systems Const All systems reviewed & are unremarkable except as noted in HPI and below Physical Exam Vital Signs: Last Vital Signs Pulse 72 01/01/24 14:43 BP 106/70 01/01/24 14:43 Pulse Ox 98 01/01/24 14:43 Oxygen Delivery Method Room Air 01/01/24 14:43 BMI result Body Mass Index 35.7 Const General: cooperative, healthy appearing and comfortable Orientation/consciousness: patient oriented x3 HEENT Head: Yes normal to inspection and Yes normocephalic General nose exam: Normal external nose present Face and sinus: Yes normal facial exam Eyes General: appearance normal, both eyes and all related structures Resp Effort & Inspection: normal respiratory effort and able to speak in complete sentences General: Yes no CVA tenderness Back/Spine/Pelvis Back: no CVA tenderness Cervical Spine: cervical ROM normal, cervical spasm (and left shoulder (rhomboids)) and No Cervical spine tenderness Thoracic/Lumbar Spine: thoracic and lumbar spine normal to inspection and No thoracic spinal tenderness Neuro General: patient oriented x3 Assessment & Plan Assessment & Plan (1) Muscle spasm: Code(s): M62.838 - Other muscle spasm Plan: Recommended using Aleve ATC and cyclobenzaprine for the next few days but I did caution not to drive a vehicle or drink alcohol while taking the muscle relaxer. Recommended he keep his appointment with his PCP on January 11 to follow up if no improvement (2) Neck pain on left side: Code(s): M54.2 - Cervicalgia Plan: See above Plan See above Medications: New cyclobenzaprine 5 mg PO Q8H PRN 15 tabs 0RF Muscle Spasm Coding Level of Care Code Est Pt Level 3 (88164) Diagnoses Muscle spasm M62.838 Neck pain on left side M54.2
[2024-01-01 14:43] VITALS: BP 106/70; PULSE 72; O2SAT 98; BMI 35.7
== END 2024-01-01 15:58 | disposition home or self-care (01) ==
PROVIDERS: PCP Internal Medicine; Visit Provider Physician Assistant
DX: M62.838 Other muscle spasm (principal); M54.2 Cervicalgia

== ENCOUNTER → 2024-01-01 14:24 | Outpatient (BNVA) | payer BC, SELFPAY | PROVIDERS: PCP Internal Medicine ==

== ENCOUNTER 2024-01-12 07:59 | Outpatient (AMB) | payer BC, SELFPAY ==
--- NOTE | 2024-01-12 08:04 | A.OFFPC_ITS ---
Vital Signs 01/12/24 08:05 Height 5 ft 7 in Weight 228 lb 6 oz BMI 35.8 BP 130/70 Blood Pressure Location Lt brachial Position Sitting Pulse 74 Pulse Source Pulse Oximeter Pulse Oximetry (%) 97 Oxygen Delivery Method Room Air Intake Visit Reasons: Neck pain Intake Note: Patient is here to follow up on Neck pain. Request a referral for chiropractor and massage therapist. Medical Auditor Required: No Flight Test Supervisor: Not Required per policy Accompanied by: Self / Same As Patient Allergies No Known Allergies Allergy (Mild, Verified 01/12/24 08:35) NONE Medication List - Last Reconciled 01/12/24 by Louis Marcum MD cyclobenzaprine 5 mg PO Q8H PRN famotidine (Pepcid) 20 mg PO BEDTIME omeprazole 40 mg PO DAILY Tobacco use date assessed: 01/12/24 Dental Screening Dental Screen Date: 07/09/23 HPI Neck pain HPI Details 58-year-old male presents to the office to discuss his chronic medical conditions. Patient is complaining of persistent neck pain for the past 2 months. He was seen in a walk-in clinic and given medications. He had minimal relief with the medications. Pain is present on the back of the neck radiating to either office shoulders. 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 He is entitled to therapeutic massages and also would like to see a chiropractor. Patient is compliant with medications. He takes the omeprazole only occasionally. Has not been exercising or following any particular diet. [facility] Medical History (Updated 01/12/24 @ 08:42 by Louis Marcum MD) Class 2 severe obesity with body mass index (BMI) of 35 to 39.9 with serious comorbidity Obstructive sleep apnea Family history of cirrhosis of liver Family history of liver cancer Transaminitis Skin lesion of neck Encounter for screening colonoscopy Colonoscopy planned High cholesterol GERD (gastroesophageal reflux disease) Surgical History History of dental surgery History of surgical removal of skin lesion (~12/13/21) History of hand surgery History of esophagogastroduodenoscopy (EGD) Hx of colonoscopy Family History Father History of liver cancer Mother No problems noted. 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 How often do you have a drink containing alcohol?: Monthly or less 2. How many drinks containing alcohol do you have on a typical day when you are drinking?: 1 or 2 3. How often do you have six or more drinks on one occasion?: Never Total Score: 1 AGATHA-7 AMB Questionnaire AGATHA-7 Date AGATHA - 7 assessed: 07/09/23 Source: Developed by Drs. Jair Tolliver, Mignon Cespedes, Eddie Renee and colleagues, with an educational hrianna from [employer]. Physical exam (Primary Care) Vital Signs: Last Vital Signs Pulse 74 01/12/24 08:05 BP 130/70 01/12/24 08:05 Pulse Ox 97 01/12/24 08:05 Oxygen Delivery Method Room Air 01/12/24 08:05 BMI result Body Mass Index 35.8 BMI Assessment/Plan discussion: High (1 lb per week weight loss suggested.) BMI High, discussed plan: lifestyle, weight reduction, dietary and physical activity Tobacco/Smoking Status: Tobacco use Status Tobacco use date assessed 01/12/24 01/12/24 08:10 Patient Tobacco Use Status Never used Tobacco 01/12/24 08:10 e-Cigarette/Vaping Use Never Used 01/12/24 08:10 Thrive Assessment: Date of Thrive Assessment Date Thrive assessed 07/09/23 01/12/24 08:10 Const General: cooperative and healthy appearing Nutritional Appearance: well nourished Orientation/consciousness: patient oriented x3 Limitations: no limitations HENMT Head: Yes normal to inspection Eyes General: appearance normal, both eyes and all related structures Neck Neck: Yes normal visual inspection Chest Chest palpation & inspection: normal palpation of entire chest wall Resp Effort & Inspection: normal respiratory effort Neuro General: patient oriented x3 Office Procedures Flu Questionnaire Does the patient have a severe egg allergy?: No Does the patient have severe life threatening allergies?: No Does the patient have a fever or illness today?: No Has the patient ever had Guillain-[place] Syndrome?: No Has the patient ever had any past reaction to a flu shot?: No Immunizations Fluarix Triv [id number] (PF) 45 mcg (15 mcg x 3)/0.5 mL IM syringe Performing Provider: Louis Marcum MD [facility] Administered by: FABIEN Leslie on 01/12/24 08:31 Dose Route Admin Location Dispensed Lot Number Expiration Date [facility] Cryptologic Linguist 0.5 mL IM Left Deltoid 0.5 mL [id number] 09/06/24 01520-659-78 Share[employer] VIS Given Date VIS Provided VIS Publication Date 01/12/24 Single Vaccine 20 Eligibility Eligibility Date Funding Source Not [facility] Eligible 01/12/24 Private Coding Level of Care Code Est Pt Level 4 (93234) Complex EM visit Add On G2211 Diagnoses Neck Pain M54.2 Transaminitis R74.01 Class 2 severe obesity with body mass index (BMI) of 35 to 39.9 with serious comorbidity E66.812; E66.01 Assessment & Plan Assessment & Plan (1) Neck Pain: Code(s): M54.2 - Cervicalgia Plan: X-rays of the neck ordered. Patient advised that he does not need a referral for a chiropractor. He can choose any of his own. A letter stating he would benefit from massage is given. Patient would make the appropriate appointment. (2) Transaminitis: Code(s): R74.01 - Elevation of levels of liver transaminase levels Category: Medical Plan: Liver enzymes are stable. Patient was advised to reduce weight. Ultrasound done last year showed fatty liver. Patient reports history of liver cancer in the family. Hepatitis profile has been ordered. (3) Class 2 severe obesity with body mass index (BMI) of 35 to 39.9 with serious comorbidity: Code(s): E66.812 - Obesity, class 2; E66.01 - Morbid (severe) obesity due to excess calories Category: Medical Plan: Counseling on the importance of diet and exercise done. Orders: Orders Influenza [id number] Immunization Today Z23 - Encounter for immunization XR cervical spine 3V Today M54.2 - Cervicalgia Hepatitis A,B,C Profile Today R74.01 - Elevation of levels of liver transaminase levels
[2024-01-12 08:05] VITALS: BP 130/70; PULSE 74; O2SAT 97; BMI 35.8
== END 2024-01-12 08:38 | disposition home or self-care (01) ==
LOC: HO.HMCH 08:00
PROVIDERS: PCP Internal Medicine; Visit Provider Internal Medicine
DX: M54.2 Cervicalgia (principal); R74.01 Elevation of levels of liver transaminase levels; E66.812 Obesity, class 2; Z68.35 Body mass index [BMI] 35.0-35.9, adult

== ENCOUNTER 2024-01-12 07:59 | Outpatient (REF) | payer BC, SELFPAY ==
--- NOTE | ~2024-01-12 | XR_ITS ---
EXAMINATION: XR CERVICAL SPINE CLINICAL INFORMATION: Cervicalgia M54.2. COMPARISON: None available TECHNIQUE: 4 views of the cervical spine were obtained. FINDINGS: Straightening of the cervical lordosis. Mild disc space narrowing at T3 C4 and C4-C5. [place] leftward curvature on the frontal view. The lung apices are clear. XR/XR cervical spine 3V IMPRESSION: Mild degenerative changes of the cervical spine. Electronically signed by: Dion Eaton MD 02/19/2024 09:55 AM YOLANDA
[2024-01-12 10:56] LABS: Anion Gap 14 (12-20); Blood Urea Nitrogen 9 mg/dL (9-16); Carbon Dioxide 28 mmol/L (22-29); Chloride 104 mmol/L (96-108); Estimated Glomerular Filt Rate > 60; Glucose Random 150 mg/dL (60-115); Potassium 3.9 mmol/L (3.3-5.1); Sodium 142 mmol/L (135-145)
[2024-01-12 11:13] LABS: HBS Num1 117.29 mIU/mL (0-7.99); HBsAGNum1 0.33 S/CO (0.00-0.99); Hepatitis A Antibody IgM 0.14 Index (0-0.79); Hepatitis B Core Antibody Nonreactive (Nonreactive); Hepatitis B Surface Antigen Negative (Negative); ~HepC Num1 0.52 S/CO (0.00-0.79); ~Hepatitis A Antibody IgM Nonreactive (Nonreactive); ~Hepatitis B Surface Antibody REACTIVE (Nonreactive); ~Hepatitis C Antibody Nonreactive (Nonreactive)
== END 2024-01-12 08:00 | disposition home or self-care (01) ==
LOC: HO.XRAY 07:59
PROVIDERS: PCP Internal Medicine; Visit Provider Internal Medicine
DX: E87.6 Hypokalemia (principal); R74.01 Elevation of levels of liver transaminase levels; M54.2 Cervicalgia; E66.812 Obesity, class 2; Z23 Encounter for immunization
CPT/HCPCS: 36415; 72040; 80048; 86704; 86706; 86709; 86803; 87340; 90471; 90656

== ENCOUNTER 2024-02-24 06:11 | Outpatient (REF) | payer BC, SELFPAY ==
--- OUTSIDE RECORDS SUMMARY | 2024-02-24 06:13 | XMS_ITS | Continuity of Care Document ---
Author Organization [place] - [facility], [facility] Address [address] [place] [address] Care Team Providers Care Software Requirements Engineer Name Role Phone VISHAL BRAUN Primary Care Provider Assessment No assessment recorded. Plan of Treatment Reminders Order Date Submit Date Provider Last Modified By Organization Details Last Modified Time Details Appointments None record ed. Lab None record ed. Referral None record ed. Procedures None record ed. Surgeries None record ed. Imaging None record ed. Medication Orders None record ed. Patient TargetsNo targets recorded. Patient InstructionsNo instructions recorded. Reason for Referral None Reported. Results Created Date Observation Date Name Description Value Unit Range Abnormal Flag Note LastModifiedBy Organization Detail LastModifiedTime 02/13/20 24 audio gram No observ ation record ed. BARCODE Not Available 2023 15:37:53 Result Notes None recorded. Problems Name Problem SNOMED Code Status Onset Date Resolution Date Notes Provider Name and Address Organization Details Recorded Time Marginal perforat ion of tympanic membrane 58390180 Completed 201610/10/2023 Other marginal perforat ions of tympanic membrane , right ear; Note: Date Diagnose d: 7 4:05 PM (H72.2X1 ) Not Available [facility] 4 02:47:06 Mixed conducti ve and sensorin eural hearing loss of right ear 67755720224 105 Active 2017 Mixed conducti ve and sensorin eural hearing loss, unilater al, right ear, with unrestri cted hearing on the contrala teral side; Note: Date Diagnose d: 07/08/2017 9:56 AM (H90.71) Not Available [facility] 4 02:47:00 Follow-u p visit Active 2017 Encounte r for follow-u p examinat ion after complete d treatmen t for conditio ns other than malignan t neoplasm ; Note: Date Diagnose d: 07/09/2017 8:41 AM (Z09) Not Available [facility] 4 02:47:06 Conducti ve hearing loss 75854313 Active 2016 Conducti ve hearing loss, unilater al, right ear, with unrestri cted hearing on the contrala teral side; Note: Date Diagnose d: 7 4:48 PM (H90.11) Not Available [facility] 4 02:47:04 Dysfunct ion of right eustachi an tube 55110466280 15351 Active 2023 MARY CAN MD [address] [facility] [place] [address], [place], [address] , [place] - [facility] 4 15:35:24 Feeling of lump in throat 289373940 Active 2023 MARY CAN MD [address] [facility] [place] [address], [place], [address] , [facility] - [facility] 4 15:43:02 Gastroes ophageal reflux disease without esophagi tis 231397231 Active 2023 MARY CAN MD [address] [facility] [place] [address], [place], [address] , [facility] - [facility] 4 15:43:06 Problem Notes None recorded. Procedures Surgical History Date Name Laterality Status Provider Name and Address Organization Details Recorded Time 12/10/2023 FFL_RE completed MARY CAN MD [address] [facility] [place] [address], [place], [address], [facility] - [facility] 12/10/2023 15:43:23 Imaging Results None recorded. Procedure Notes None recorded. Medical Equipment None Reported. Allergies No known drug allergies Medications Name Sig Start Date Stop Date Status Note LastModified by Organization Details LastModified Time azithromycin 250 mg tablet TAKE 2 TABLETS BY MOUTH TODAY, THEN TAKE 1 TABLET DAILY FOR 4 DAYS DIRECTED active Not Available Not Available No t Available omeprazole 40 mg capsule,delaye d release TAKE 1 CAPSULE BY MOUTH EVERY DAY active Not Available Not Available No t Available potassium chloride 20 mEq/15 mL oral liquid TAKE 15ML'S (20 MEQ) ORALLY DAILY active Not Available Not Available No t Available famotidine 20 mg tablet TAKE 1 TABLET BY MOUTH EVERYDAY AT BEDTIME active Not Available Not Available No t Available ibuprofen 600 mg tablet 1 TABLET EVERY 6 HOURS NEEDED FOR PAIN active Not Available Not Available No t Available cyclobenzaprin e 5 mg tablet TAKE 1 TABLET ORALLY EVERY 8 HOURS NEEDED FOR MUSCLE SPASM active Not Available Not Available No t Available chlorhexidine gluconate 0.12 % mouthwash RINSE WITH 1/2 OZ FOR 30 SECONDS THEN SPIT TWICE DAILY. active Not Available Not Available No t Available Vitals Date Recorded Body height Body mass index (BMI) Body weight Provider Name and Address Organization Details Last Updated DateTime 02/13/2024 170.18 cm 32.9 kg/m2 67139.4 g Raul Escobar [facility] 02/13/2024 10:52:53 Social History None recorded. Functional Status None recorded. Mental Status None recorded. Family History Nothing Reported. Medical History No medical history recorded. Past Encounters Encounter ID Performer Location Encounter Start Date Encounter Closed Date Diagnosis/Indication Diagnosis SNOMED-CT Code Diagnosis ICD10 Code [id number] MARY CAN MD [facility] on [address] [place] [phone] 02/13/2024 10:26:43 02/13/2024 11:37:32 Dysfunction of right eustachian tube 2115977952 881953 H69.91 Feeling of lump in throat 771286249 R09.89 Gastroesop hageal reflux disease without esophagitis 511679558 K21.9 Health Concerns Section Related Observation LastModified by Organization Detai ls LastModified Time None Recorded Concern Status LastModified by Organization Details LastModified Time None Recorded Payers Encounter Date Sequence Insurance Name Policy Number Policy Nix Covered Member ID Nix Member ID Guarantor Name 02/13/2024 1 [employer]: COLLINS VALENZUELA (PPO) [id number] 3 Sam Hutton [id number] BF Sam Hutton Notes Date Note Type Note Provider Name and Address Organization Details Recorded Time 02/13/2024 text/html He has a history of a right tympanoplasty by me in 2018 for perforation. He reports both ears feel blocked. Audio today showed normal tymps and some mild HF SNHL AD (operated ear). His throat feels better since he began omeprazole. He is now taking omeprazole as needed. MARY CAN MD [address] [place] [address], [phone], [facility] - [facility] 02/13/2024 11:25:25
--- OUTSIDE RECORDS SUMMARY | 2024-02-24 06:13 | XMS_ITS | Continuity of Care Document ---
Author Organization [place] - [facility], [facility] Address [address] [place] [address] Care Team Providers Care Quality Reviewer Name Role Phone VISHAL BRAUN Primary Care [...] Time Marginal perforat ion of tympanic membrane 29211192 Completed 201610/10/2023 Other marginal perforat ions of tympanic membrane , right ear; Note: Date Diagnose d: 7 4:05 PM (H72.2X1 ) Not Available [facility] 4 02:47:06 Mixed conducti ve and sensorin eural hearing loss of right ear 88124954899 105 Active 2017 Mixed conducti ve and [...] d: 07/09/2017 8:41 AM (Z09) Not Available [facility] 4 02:47:06 Conducti ve hearing loss 58895601 Active 2016 Conducti ve hearing loss, unilater al, right ear, with unrestri cted hearing on the contrala teral side; Note: Date Diagnose d: 7 4:48 PM (H90.11) Not Available [facility] 4 02:47:04 Dysfunct ion of right eustachi an tube 34557607067 56357 Active 2023 MARY CAN MD [address] [facility] [place],[facility] [address], [place], [address] , [place] - [facility] 4 15:35:24 Feeling of lump in throat 740878695 Active 2023 MARY CAN MD [address] [facility] [place] [address], [place], [address] , [facility] - [facility] 4 15:43:02 Gastroes ophageal reflux disease without esophagi tis 528584946 Active 2023 MARY CAN MD [address] [facility] [place] [address], [place], [address] , [facility] - [facility] 4 15:43:06 Problem Notes None recorded. Procedures Surgical History Date Name Laterality Status Provider Name and Address Organization Details Recorded Time 12/10/2023 FFL_RE completed MARY CAN MD [address] [facility] [place] [address], [place], [address], [facility] - [facility] 12/10/2023 15:43:23 Imaging Results None recorded. [...] and Address Organization Details Last Updated DateTime 12/10/2023 170.18 cm 32.9 kg/m2 08792.4 g Raul Escobar [facility] 12/10/2023 15:22:26 Social History None recorded. Functional Status None recorded. Mental Status None recorded. Family History Nothing Reported. Medical History No medical history recorded. Past Encounters Encounter ID Performer Location Encounter Start Date Encounter Closed Date Diagnosis/Indication Diagnosis SNOMED-CT Code Diagnosis ICD10 Code [id number] MARY CAN MD [facility] on [address] [place] [phone] 12/10/2023 15:15:43 12/10/2023 15:43:00 Dysfunction of right eustachian tube 7535849264 509458 H69.91 Feeling of lump in throat 699480892 R09.89 Gastroesop hageal reflux disease without esophagitis 833772595 K21.9 Health Concerns Section Related Observation LastModified by Organization Detai ls LastModified Time None Recorded Concern Status LastModified by Organization Details LastModified Time None Recorded Payers Encounter Date Sequence Insurance Name Policy Number Policy Nix Covered Member ID Nix Member ID Guarantor Name 12/10/2023 1 [employer]: COLLINS VALENZUELA (PPO) [id number] 3 Sam Hutton [id number] BF Sam Hutton Notes Date Note Type Note Provider Name and Address Organization Details Recorded Time 12/10/2023 text/html He has a history of a right tympanoplasty by me in 2018 for perforation. He reports both ears feel blocked. He occasionally has pain in the right ear. He wonders if he has fluid in his ears. He clears his throat often. Sometimes he feels food gets stuck and he has the sensation it is stuck in his throat. He takes omeprazole for reflux. He reports food and drink to go down without too much trouble he just has the sensation. He does follow with GI and has an appointment in February. MARY CAN MD [address] [place] [address], [phone], [facility] - [facility] 12/10/2023 15:47:02
--- OUTSIDE RECORDS SUMMARY | 2024-02-24 06:13 | XMS_ITS | Data Portability ---
Author Organization [place] - [facility], Allergy Address [address] [place] [address] Care Team Providers Care Beaver Trapper Name Role Phone VISHAL BRAUN Primary Care [...] Time Marginal perforat ion of tympanic membrane 97653416 Completed 201610/10/2023 Other marginal perforat ions of tympanic membrane , right ear; Note: Date Diagnose d: 7 4:05 PM (H72.2X1 ) Not Available [facility] 4 02:47:06 Mixed conducti ve and sensorin eural hearing loss of right ear 02329844997 105 Active 2017 Mixed conducti ve and [...] d: 07/09/2017 8:41 AM (Z09) Not Available [facility] 4 02:47:06 Conducti ve hearing loss 69054086 Active 2016 Conducti ve hearing loss, unilater al, right ear, with unrestri cted hearing on the contrala teral side; Note: Date Diagnose d: 7 4:48 PM (H90.11) Not Available [facility] 4 02:47:04 Dysfunct ion of right eustachi an tube 42670510696 53888 Active 2023 MARY CAN MD [address] [place] [address],[place] [address], [facility] [place], [address] , [place] - [facility] 4 15:35:24 Feeling of lump in throat 817843826 Active 2023 MARY CAN MD [address] [place] [address],[place] [address], [facility] [place], [address] , [facility] - [facility] 4 15:43:02 Gastroes ophageal reflux disease without esophagi tis 465183155 Active 2023 MARY CAN MD [address] [place] [address],[place] [address], [facility] [place], [address] , [place] - [facility] 4 15:43:06 Problem Notes None recorded. Procedures Surgical History Date Name Laterality Status Provider Name and Address Organization Details Recorded Time 12/10/2023 FFL_RE completed MARY CAN MD [address] [place] [address],[place] [address], [place], [address], [place] - [facility] 12/10/2023 15:43:23 Imaging Results Imaging Date Name Status LastModified by Organiz ation Details LastModified Time 02/13/2024 audiogram completed BARCODE Information no t available 02/13/2024 15:37:53 Procedure Notes None recorded. Medical Equipment None [...] Updated DateTime 12/10/2023 170.18 cm 32.9 kg/m2 77342.4 g [facility] 12/10/2023 15:22:26 Date Recorded Body height Body mass index (BMI) Body weight Provider Name and Address Organization Details Last Updated DateTime 02/13/2024 170.18 cm 32.9 kg/m2 29102.4 g [facility] 02/13/2024 10:52:53 Social History None recorded. Functional Status None recorded. Mental Status None recorded. Family History Nothing Reported. Medical History No medical history recorded. Past Encounters Encounter ID Performer Location Encounter Start Date Encounter Closed Date Diagnosis/Indication Diagnosis SNOMED-CT Code Diagnosis ICD10 Code [id number] MARY CAN MD [facility] on [address] [place] [address] 12/10/2023 15:15:43 12/10/2023 15:43:00 Dysfunction of right eustachian tube 5658150252 543450 H69.91 Feeling of lump in throat 460932892 R09.89 Gastroesop hageal reflux disease without esophagitis 071232392 K21.9 [id number] [facility] [address] [place] [address] 02/13/2024 10:26:43 02/13/2024 11:37:32 Dysfunction of right eustachian tube 8412981513 756376 H69.91 Feeling of lump in throat 644758859 R09.89 Gastroesop hageal reflux disease without esophagitis 813450169 K21.9 Health Concerns Section Related Observation LastModified by Organization Detai ls LastModified Time None Recorded Concern Status LastModified by Organization Details LastModified Time None Recorded Advance Directives Directive None Recorded Payers Encounter Date Sequence Insurance Name Policy Number Policy Nix Covered Member ID Nix Member ID Guarantor Name 12/10/2023 1 [place]: ANTHEM BCBS ([place]O) [id number] 3 Sam Hutton [id number] BF Sam Hutton 02/13/2024 1 [place]: [place]M BCBS ([place]) [id number] 3 Sam Hutton [id number] BF Sam Hutton Notes Date Note Type [...] an appointment in February. MARY CAN MD [address] [place] [address], [address], [facility] - [facility] 12/10/2023 15:47:02 02/13/2024 text/html He has a history of a right tympanoplasty by me in 2018 for perforation. He reports both ears feel blocked. Audio today showed normal tymps and some mild HF SNHL AD (operated ear). His throat feels better since he began omeprazole. He is now taking omeprazole as needed. MARY CAN MD [address] [place] [address],[address], [address], [facility] - [facility] 02/13/2024 11:25:25
[2024-02-24 07:57] LABS: Alanine Aminotransferase 81 U/L (0-40); Albumin Level 3.9 g/dL (3.5-5.0); Alkaline Phosphatase 57 U/L (39-117); Aspartate Amino Transferase 63 U/L (5-37); Bilirubin Direct 0.3 mg/dL (0.0-0.5); Bilirubin Total 1.2 mg/dL (0.0-1.0); Total Protein 6.3 g/dL (6.5-8.0)
== END 2024-02-24 06:12 | disposition home or self-care (01) ==
LOC: HO.LAB 06:11
PROVIDERS: PCP Internal Medicine; Visit Provider Nurse Practitioner Family
DX: R74.01 Elevation of levels of liver transaminase levels (principal)
CPT/HCPCS: 36415; 80076

== ENCOUNTER 2024-02-26 15:32 | Outpatient (REF) | payer BC, SELFPAY ==
[2024-02-26 17:06] LABS: Prothrombin Time 11.9 SEC (10.9-12.4)
[2024-02-26 17:43] LABS: C Reactive Protein < 0.10 mg/dL (< or = 0.50); Iron 92 mcg/dL (45-160); Percent Iron Saturation 25 % (15-50); Total Iron Binding Capacity 364 mcg/dL (228-428); Unsaturated Iron Binding 272 ug/dL
[2024-02-26 17:45] LABS: Erythrocyte Sedimentation Rate 5 MM/HR (0-15)
[2024-02-26 17:53] LABS: Ferritin 139 ng/mL (20-250); TSH reflex Free T4 2.67 uIU/mL (0.32-4.0)
[2024-02-27 13:18] LABS: Alpha Fetoprotein 5.9 ng/mL (<6.1)
[2024-02-27 14:13] LABS: Transglutaminase IgA <1.0 U/mL
[2024-02-28 13:03] LABS: Ceruloplasmin 21 mg/dL (14-30)
[2024-03-01 10:43] LABS: Mitochondrial Antibodies NEGATIVE (NEGATIVE)
[2024-03-01 14:43] LABS: Anti Nuclear Antibody Screen NEGATIVE (NEGATIVE)
[2024-03-03 06:27] LABS: Liver Kidney Microsomal Ab <=20.0 U (<=20.0)
[2024-03-05 14:22] LABS: Smooth Muscle Antibody 27 U (<20)
[2024-03-05 17:13] LABS: FIB-ALT 85 U/L (9-46); FIB-Alpha-2-Macroglobulin 211 mg/dL (106-279); FIB-Apolipoprotein A1 126 mg/dL (94-176); FIB-GGT 39 U/L (3-85); FIB-Haptoglobin 77 mg/dL (43-212); FIB-Total Bilirubin 0.9 mg/dL (0.2-1.2); Liver Fibrosis Score 0.54; Liver Fibrosis Stage F2; Nec Inflam Act Grade A2; Nec Inflam Act Score 0.59; Reference ID 5265454
== END 2024-02-26 15:33 | disposition home or self-care (01) ==
LOC: HO.LAB 15:32
PROVIDERS: PCP Internal Medicine; Visit Provider Nurse Practitioner Family
DX: R74.8 Abnormal levels of other serum enzymes (principal); R79.89 Other specified abnormal findings of blood chemistry; Z86.19 Personal history of other infectious and parasitic diseases; K58.9 Irritable bowel syndrome, unspecified; D64.9 Anemia, unspecified; R10.9 Unspecified abdominal pain; K59.00 Constipation, unspecified; K76.0 Fatty (change of) liver, not elsewhere classified
CPT/HCPCS: 36415; 81596; 82105; 82390; 82728; 83540; 84443; 85610; 85652; 86015; 86038; 86140; 86364; 86376; 86381

== ENCOUNTER → 2024-02-26 15:32 | Outpatient (AMB) | payer BC, SELFPAY ==
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
[2024-02-26 15:39] VITALS: BP 144/82; PULSE 76; O2SAT 98; BMI 35.8
--- OUTSIDE RECORDS SUMMARY | 2024-02-26 18:47 | XMS_ITS | Continuity of Care Document ---
Author Organization [place] - [facility], [facility] Address [address] [place] [address] Care Team Providers Care Gas Pumping Station Operator Name Role Phone VISHAL BRAUN Primary Care [...] Time Marginal perforat ion of tympanic membrane 17628452 Completed 201610/10/2023 Other marginal perforat ions of tympanic membrane , right ear; Note: Date Diagnose d: 7 4:05 PM (H72.2X1 ) Not Available [facility] 4 02:47:06 Mixed conducti ve and sensorin eural hearing loss of right ear 25144445330 105 Active 2017 Mixed conducti ve and [...] d: 07/09/2017 8:41 AM (Z09) Not Available [facility] 4 02:47:06 Conducti ve hearing loss 49232920 Active 2016 Conducti ve hearing loss, unilater al, right ear, with unrestri cted hearing on the contrala teral side; Note: Date Diagnose d: 7 4:48 PM (H90.11) Not Available [facility] 4 02:47:04 Dysfunct ion of right eustachi an tube 06441409992 04345 Active 2023 MARY CAN MD [address] [facility] [place], [place], [address] , [place] - [facility] 4 15:35:24 Feeling of lump in throat 001271790 Active 2023 MARY CAN MD [address] [facility] [place] [address], [place], [address] , [facility] - [facility] 4 15:43:02 Gastroes ophageal reflux disease without esophagi tis 940465709 Active 2023 MARY CAN MD [address] [facility] [place] [address], [place], [address] , [facility] - [facility] 4 15:43:06 Problem Notes None recorded. Procedures Surgical History Date Name Laterality Status Provider Name and Address Organization Details Recorded Time 12/10/2023 FFL_RE completed MARY CAN MD [address] [facility] [place] [address], [place], [address], [facility] - [facility] 12/10/2023 15:43:23 Imaging Results None recorded. [...] Updated DateTime 02/13/2024 170.18 cm 32.9 kg/m2 96033.4 g Raul Escobar [facility] 02/13/2024 10:52:53 Social History None recorded. Functional Status None recorded. Mental Status None recorded. Family History Nothing Reported. Medical History No medical history recorded. Past Encounters Encounter ID Performer Location Encounter Start Date Encounter Closed Date Diagnosis/Indication Diagnosis SNOMED-CT Code Diagnosis ICD10 Code [id number] MARY CAN MD [facility] on [address] [place] [address] 02/13/2024 10:26:43 02/13/2024 11:37:32 Dysfunction of right eustachian tube 5185079554 461683 H69.91 Feeling of lump in throat 443891609 R09.89 Gastroesop hageal reflux disease without esophagitis 897195414 K21.9 Health Concerns Section Related Observation LastModified by Organization Detai ls LastModified Time None Recorded Concern Status LastModified by Organization Details LastModified Time None Recorded Payers Encounter Date Sequence Insurance Name Policy Number Policy Nix Covered Member ID Nix Member ID Guarantor Name 02/13/2024 1 [employer]: COLLINS VALENZUELA (PPO) [id number] 3 Sam Hutton [id number] BF Sam Hutton Notes Date Note Type [...] taking omeprazole as needed. MARY CAN MD [address] [place] [address], [address], [facility] - [facility] 02/13/2024 11:25:25
--- OUTSIDE RECORDS SUMMARY | 2024-02-26 18:47 | XMS_ITS | Continuity of Care Document ---
Author Organization [place] - [facility], [facility] Address [address] [place] [address] Care Team Providers Care Equipment Operator/Laborer/Supervisor Name Role Phone VISHAL BRAUN Primary Care [...] Time Marginal perforat ion of tympanic membrane 21739753 Completed 201610/10/2023 Other marginal perforat ions of tympanic membrane , right ear; Note: Date Diagnose d: 7 4:05 PM (H72.2X1 ) Not Available [facility] 4 02:47:06 Mixed conducti ve and sensorin eural hearing loss of right ear 24459779345 105 Active 2017 Mixed conducti ve and [...] 8:41 AM (Z09) Not Available [facility] 4 02:47:06 Conducti ve hearing loss 64664298 Active 2016 Conducti ve hearing loss, unilater al, right ear, with unrestri cted hearing on the contrala teral side; Note: Date Diagnose d: 7 4:48 PM (H90.11) Not Available [facility] 4 02:47:04 Dysfunct ion of right eustachi an tube 69985226338 26423 Active 2023 MARY CAN MD [address] [facility], [place], [address] , [place] - [facility] 4 15:35:24 Feeling of lump in throat 976358996 Active 2023 MARY CAN MD [address] [facility],[place] [address], [place], [address] , [facility] - [facility] 4 15:43:02 Gastroes ophageal reflux disease without esophagi tis 156468437 Active 2023 MARY CAN MD [address] [facility],[place] [address], [place], [address] , [facility] - [facility] 4 15:43:06 Problem Notes None recorded. Procedures Surgical History Date Name Laterality Status Provider Name and Address Organization Details Recorded Time 12/10/2023 FFL_RE completed MARY CAN MD [address] [facility],[place] [address], [place], [address], [facility] - [facility] 12/10/2023 15:43:23 Imaging Results None recorded. Procedure [...] Updated DateTime 12/10/2023 170.18 cm 32.9 kg/m2 69612.4 g Raul Escobar [facility] 12/10/2023 15:22:26 Social History None recorded. Functional Status None recorded. Mental Status None recorded. Family History Nothing Reported. Medical History No medical history recorded. Past Encounters Encounter ID Performer Location Encounter Start Date Encounter Closed Date Diagnosis/Indication Diagnosis SNOMED-CT Code Diagnosis ICD10 Code [id number] MARY CAN MD [facility] on [address] [place] [address] 12/10/2023 15:15:43 12/10/2023 15:43:00 Dysfunction of right eustachian tube 7018116349 905239 H69.91 Feeling of lump in throat 499836270 R09.89 Gastroesop hageal reflux disease without esophagitis 310361638 K21.9 Health Concerns Section Related Observation LastModified by Organization Detai ls LastModified Time None Recorded Concern Status LastModified by Organization Details LastModified Time None Recorded Payers Encounter Date Sequence Insurance Name Policy Number Policy Nix Covered Member ID Nix Member ID Guarantor Name 12/10/2023 1 [employer]: COLLINS VALENZUELA (PPO) [id number] 3 Sam Hutton [id number] BF Sam Hutton Notes Date Note Type [...] an appointment in February. MARY CAN MD [address] [place] [address], [address], [facility] - [facility] 12/10/2023 15:47:02
--- OUTSIDE RECORDS SUMMARY | 2024-02-26 18:47 | XMS_ITS | Data Portability ---
Author Organization [place] - [facility], Allergy Address [address] [place] [address] Care Team Providers Care Sponge Packer Name Role Phone VISHAL BRAUN Primary Care [...] Time Marginal perforat ion of tympanic membrane [id number] Completed 201610/10/2023 Other marginal perforat ions of tympanic membrane , right ear; Note: Date Diagnose d: 7 4:05 PM (H72.2X1 ) Not Available [facility] 4 02:47:06 Mixed conducti ve and sensorin eural hearing loss of right ear [id number] 105 Active 2017 Mixed conducti ve and [...] (Z09) Not Available [facility] 4 02:47:06 Conducti ve hearing loss 11721118 Active 2016 Conducti ve hearing loss, unilater al, right ear, with unrestri cted hearing on the contrala teral side; Note: Date Diagnose d: 7 4:48 PM (H90.11) Not Available [facility] 4 02:47:04 Dysfunct ion of right eustachi an tube 25356352194 21123 Active 2023 MARY CAN MD [address] [place] [address],[place] [address], [facility] [place], [address] , [place] - [facility] 4 15:35:24 Feeling of lump in throat 441214746 Active 2023 MARY CAN MD [address] [place] [address],[place] [address], [facility] [place], [address] , [facility] - [facility] 4 15:43:02 Gastroes ophageal reflux disease without esophagi tis 671246164 Active 2023 MARY CAN MD [address] [place] [address],[place] [address], [place], [address] , [place] - [facility] 4 15:43:06 Problem Notes None recorded. Procedures Surgical History Date Name Laterality Status Provider Name and Address Organization Details Recorded Time 12/10/2023 FFL_RE completed MARY CAN MD [address] [place] [address],[place] [address], [place], [address], [place] - [facility] 12/10/2023 15:43:23 Imaging Results Imaging Date Name [...] Updated DateTime 12/10/2023 170.18 cm 32.9 kg/m2 30932.4 g [facility] 12/10/2023 15:22:26 Date Recorded Body height Body mass index (BMI) Body weight Provider Name and Address Organization Details Last Updated DateTime 02/13/2024 170.18 cm 32.9 kg/m2 33113.4 g [facility] 02/13/2024 10:52:53 Social History None recorded. Functional Status None recorded. Mental Status None recorded. Family History Nothing Reported. Medical History No medical history recorded. Past Encounters Encounter ID Performer Location Encounter Start Date Encounter Closed Date Diagnosis/Indication Diagnosis SNOMED-CT Code Diagnosis ICD10 Code [id number] MARY CAN MD [facility] on [address] [place] [address] 12/10/2023 15:15:43 12/10/2023 15:43:00 Dysfunction of right eustachian tube [id number] 352087 H69.91 Feeling of lump in throat 591178138 R09.89 Gastroesop hageal reflux disease without esophagitis 164504009 K21.9 [id number] [facility] [address] [place] [address] 02/13/2024 10:26:43 02/13/2024 11:37:32 Dysfunction of right eustachian tube 3173235943 226128 H69.91 Feeling of lump in throat 313143442 R09.89 Gastroesop hageal reflux disease without esophagitis 872686831 K21.9 Health Concerns Section Related Observation LastModified by Organization Detai ls LastModified Time None Recorded Concern Status LastModified by Organization Details LastModified Time None Recorded Advance Directives Directive None Recorded Payers Encounter Date Sequence Insurance Name Policy Number Policy Nix Covered Member ID Nix Member ID Guarantor Name 12/10/2023 1 [place] BC[place] ([place]) [id number] 3 Sam Hutton [id number] BF Sam Hutton 02/13/2024 1 [place]) [id number] 3 Sam Hutton [id number] Sam Hutton Notes Date Note Type [...] an appointment in February. MARY CAN MD [address] [place] [address], [phone], [facility] - [facility] 12/10/2023 15:47:02 02/13/2024 text/html He has a history of a right tympanoplasty by me in 2018 for perforation. He reports both ears feel blocked. Audio today showed normal tymps and some mild HF SNHL AD (operated ear). His throat feels better since he began omeprazole. He is now taking omeprazole as needed. MARY CAN MD [address] [place] [address],[address], [address], [facility] - [facility] 02/13/2024 11:25:25
== END ==
PROVIDERS: PCP Internal Medicine; Visit Provider Nurse Practitioner Family
DX: Z83.79 Family history of other diseases of the digestive system (principal); Z80.0 Family history of malignant neoplasm of digestive organs; R74.01 Elevation of levels of liver transaminase levels; K21.9 Gastro-esophageal reflux disease without esophagitis
CPT/HCPCS: 99214

== ENCOUNTER 2024-03-29 07:52 | Outpatient (REF) | payer BC, SELFPAY ==
--- NOTE | ~2024-03-29 | US_ITS ---
EXAMINATION: US ABDOMEN LIMITED WITH LIVER ELASTOGRAPHY HISTORY: K76.0 - Fatty (change of) liver, not elsewhere classified TECHNIQUE: Real-time grayscale ultrasound imaging of the abdomen was performed and images were reviewed. COMPARISON: Comparison is made with prior examinations dated 04/18/2023 and 04/04/2022. FINDINGS: Liver: The liver is top normal in size, but demonstrates increased echotexture, consistent with steatosis. No focal mass or intrahepatic biliary ductal dilatation is identified. There is normal hepatopedal flow in the portal vein. Ultrasound elastography of the liver was performed with 10 separate measurements of the liver parenchyma with the patient in the supine position. Measurements were obtained approximately 2 cm below Pedro's capsule and perpendicular to the capsule. Images are of satisfactory quality. The median shear wave velocity is 1.32 m/s (previously 1.27 m/s). The interquartile range/median (IQR/median) is 0.06. Gallbladder and biliary tree: The gallbladder is unremarkable, without evidence of calculi, wall thickening, or pericholecystic fluid. There is no sonographic Smart sign. The common bile duct is normal in caliber measuring 3 mm. Right kidney: The right kidney measures 10.5 cm in length. The right kidney is unremarkable, without evidence of masses, hydronephrosis, or calculi. Pancreas: The pancreatic head and neck are unremarkable. The remainder of the pancreas is obscured by bowel gas. Abdominal aorta and inferior vena cava: The visualized portions of the abdominal aorta and inferior vena cava are normal in caliber. There is no free fluid in the abdomen. US/US abdomen kumari w elastography IMPRESSION: Hepatic steatosis. The median shear wave velocity is 1.32 m/s, corresponding to a median liver stiffness of 5.26 kPa. The IQR/median value is 0.06. This is indicative of a quality data set. Findings are indicative of a low elastography value which rules out advanced chronic liver disease in asymptomatic patients. REFERENCE: Society of Radiologists in Ultrasound Liver Stiffness Thresholds (2020): LIVER STIFFNESS THRESHOLDS: *Shear wave velocity less than 1.3 m/s (Liver Stiffness equal or less than 5 kPa): High probability of being normal. *Shear wave velocity less than 1.7 m/s (Liver Stiffness less than 9 kPa): In the absence of other known clinical signs, rules out compensated advanced chronic liver disease. *Shear wave velocity between 1.7-2.1 m/s (Liver Stiffness 9-13 kPa): Suggestive of compensated advanced chronic liver disease but need further test for confirmation. *Shear wave velocity between 2.1-2.4 m/s (Liver Stiffness 13-17 kPa): Rules in compensated advanced chronic liver disease. *Shear wave velocity greater than 2.4 m/s (Liver Stiffness over 17 kPa): Suggestive of clinically significant portal hypertension. QUALITY OF DATA SET: *IQR/Median value equal or less than 0.15 implies a quality data set. *IQR/Median value over 0.15 implies a poor quality data set. SIGNIFICANT CHANGE FROM PRIOR EXAM: Significant change if liver stiffness measurement is 10% or greater from prior exam. OTHER CONSIDERATIONS: The stage of liver fibrosis may be overestimated in the setting of acute hepatitis, liver inflammation, elevated liver function tests, hepatic vascular congestion, obstructive cholestasis, non-fasting state, and infiltrative diseases such as amyloidosis and lymphoma. In some patients with NAFLD, the liver stiffness thresholds for compensated advanced chronic liver disease may be lower. In causes other than viral hepatitis and NAFLD, liver stiffness thresholds are not well established. Electronically signed by: Jair Lagos MD 03/29/2024 10:24 AM [facility]
--- OUTSIDE RECORDS SUMMARY | 2024-03-29 07:54 | XMS_ITS | Data Portability ---
Author Organization [place] - [facility], Allergy Address [address] [place] [address] Care Team Providers Care Percussion Instructor Name Role Phone VISHAL BRAUN Primary Care [...] Time Marginal perforat ion of tympanic membrane 41261915 Completed 201610/10/2023 Other marginal perforat ions of tympanic membrane , right ear; Note: Date Diagnose d: 7 4:05 PM (H72.2X1 ) Not Available [facility] 4 02:47:06 Mixed conducti ve and sensorin eural hearing loss of right ear 35719021361 105 Active 2017 Mixed conducti ve and [...] d: 07/09/2017 8:41 AM (Z09) Not Available [facility] 4 02:47:06 Conducti ve hearing loss 62094296 Active 2016 Conducti ve hearing loss, unilater al, right ear, with unrestri cted hearing on the contrala teral side; Note: Date Diagnose d: 7 4:48 PM (H90.11) Not Available [facility] 4 02:47:04 Dysfunct ion of right eustachi an tube 69806342085 46466 Active 2023 MARY CAN MD [address] [place] [address],[place] [address], [place], [address] , [place] - [facility] 4 15:35:24 Feeling of lump in throat 680020324 Active 2023 MARY CAN MD [address] [place] [address],[place] [address], [place], [address] , [facility] - [facility] 4 15:43:02 Gastroes ophageal reflux disease without esophagi tis 419607243 Active 2023 MARY CAN MD [address] [place] [address],[place] [address], [place], [address] , [place] - [facility] 4 15:43:06 Problem Notes None recorded. Procedures Surgical History Date Name Laterality Status Provider Name and Address Organization Details Recorded Time 12/10/2023 FFL_RE completed MARY CNA MD [address] [place] [address],[place] [address], [place], [address], [facility] - [facility] 12/10/2023 15:43:23 Imaging Results Imaging Date Name [...] Updated DateTime 12/10/2023 170.18 cm 32.9 kg/m2 28559.4 g [facility] 12/10/2023 15:22:26 Date Recorded Body height Body mass index (BMI) Body weight Provider Name and Address Organization Details Last Updated DateTime 02/13/2024 170.18 cm 32.9 kg/m2 45481.4 [facility] 02/13/2024 10:52:53 Social History None recorded. Functional Status None recorded. Mental Status None recorded. Family History Nothing Reported. Medical History No medical history recorded. Past Encounters Encounter ID Performer Location Encounter Start Date Encounter Closed Date Diagnosis/Indication Diagnosis SNOMED-CT Code Diagnosis ICD10 Code Diagnosis Note [id number] MARY CAN MD [facility] on [address] [place] [address] 12/10/2023 15:15:43 12/10/2023 15:43:00 Dysfunction of right eustachian tube [id number] 892922 H69.91 TM intact. No obvious effusions AU. I don't have audiology today so we will have him return for an audio and repeat exam. Feeling of lump in throat 414414599 R09.89 see below. Gastroesop hageal reflux disease without esophagitis 788509292 K21.9 Exam was benign. Laryngosco py showed cobbl[place] ing. I gave reassuranc e no masses. I feel the symptoms are likely due to extra esophageal reflux disease. We will begin a six-week trial of omeprazole which was sent to their pharmacy. We will plan a follow up in 3-4 months to reassess. [id number] MARY CAN MD [facility] on [address] [place] [address] 02/13/2024 10:26:43 02/13/2024 11:37:32 Dysfunction of right eustachian tube 5824675684 341993 H69.91 TM intact. No obvious effusions AU. Hearing is likely worse due to prior surgery and stiffening of the TM. I gave reassuranc e no interventi on is needed. Feeling of lump in throat 007770575 R09.89 improved. OK to take omeprazole as needed. Gastroesop hageal reflux disease without esophagitis 020345796 K21.9 improved. OK to take omeprazole as needed. Health Concerns Section Related Observation LastModified by Organization Detai ls LastModified Time None Recorded Concern Status LastModified by Organization Details LastModified Time None Recorded Advance Directives Directive None Recorded Payers Encounter Date Sequence Insurance Name Policy Number Policy Nix Covered Member ID Nix Member ID Guarantor Name 12/10/2023 1 [place]: [place] VARGASBS (PPO) [id number] 3 Sam Hutton [id number] Sam Hutton 02/13/2024 1 [place]: [place] (PPO) [id number] 3 Sam Hutton [id number] Sam Hutton Notes Date Note Type Note [...] an appointment in February. MARY CAN MD [address] [facility],[address], [address], [facility] 12/10/2023 15:47:02 02/13/2024 text/html He has a history of a right tympanoplasty by me in 2018 for perforation. He reports both ears feel blocked. Audio today showed normal tymps and some mild HF SNHL AD (operated ear). His throat feels better since he began omeprazole. He is now taking omeprazole as needed. MARY CAN MD [address] [facility],[place] [address], [place], [address], [facility] 02/13/2024 11:25:25
--- OUTSIDE RECORDS SUMMARY | 2024-03-29 07:54 | XMS_ITS | Continuity of Care Document ---
Author Organization [place] - [facility], [facility] Address [address] [place] [address] Care Team Providers Care Flow Match Sofa Cutter Name Role Phone KADE, KARTIK Primary Care Provider Assessment No assessment recorded. [...] Time Marginal perforat ion of tympanic membrane 81665281 Completed 201610/10/2023 Other marginal perforat ions of tympanic membrane , right ear; Note: Date Diagnose d: 7 4:05 PM (H72.2X1 ) Not Available [facility] 4 02:47:06 Mixed conducti ve and sensorin eural hearing loss of right ear 31447117039 105 Active 2017 Mixed conducti ve and [...] d: 07/09/2017 8:41 AM (Z09) Not Available [facility] 4 02:47:06 Conducti ve hearing loss 36936604 Active 2016 Conducti ve hearing loss, unilater al, right ear, with unrestri cted hearing on the contrala teral side; Note: Date Diagnose d: 7 4:48 PM (H90.11) Not Available [facility] 4 02:47:04 Dysfunct ion of right eustachi an tube 26652935588 10796 Active 2023 MARY CAN MD [address] [facility],[place] [address], [place], [address] , [place] - [facility] 4 15:35:24 Feeling of lump in throat 320041555 Active 2023 MARY CAN MD [address] [facility] [place] [address], [place], [address] , [place] - [facility] 4 15:43:02 Gastroes ophageal reflux disease without esophagi tis 432921899 Active 2023 MARY CAN MD [address] [facility] [place] [address], [place], [address] , [place] - [facility] 4 15:43:06 Problem Notes None recorded. Procedures Surgical History Date Name Laterality Status Provider Name and Address Organization Details Recorded Time 12/10/2023 FFL_RE completed MARY CAN MD [address] [facility] [place] [address], [place], [address], [facility] [...] Updated DateTime 02/13/2024 170.18 cm 32.9 kg/m2 01568.4 g Raul Escobar [facility] 02/13/2024 10:52:53 Social History None recorded. Functional Status None recorded. Mental Status None recorded. Family History Nothing Reported. Medical History No medical history recorded. Past Encounters Encounter ID Performer Location Encounter Start Date Encounter Closed Date Diagnosis/Indication Diagnosis SNOMED-CT Code Diagnosis ICD10 Code Diagnosis Note [id number] MARY CAN MD [facility] on [address] [place] [address] 02/13/2024 10:26:43 02/13/2024 11:37:32 Dysfunction of right eustachian tube 5042419079 843242 H69.91 TM intact. No obvious effusions AU. Hearing is likely worse due to prior surgery and stiffening of the TM. I gave reassuranc e no interventi on is needed. Feeling of lump in throat 797526611 R09.89 improved. OK to take omeprazole as needed. Gastroesop hageal reflux disease without esophagitis 417169277 K21.9 improved. OK to take omeprazole as needed. Health Concerns Section Related Observation LastModified by Organization Detai ls LastModified Time None Recorded Concern Status LastModified by Organization Details LastModified Time None Recorded Payers Encounter Date Sequence Insurance Name Policy Number Policy Nix Covered Member ID Nix Member ID Guarantor Name 02/13/2024 1 [employer]-[place]: COLLINS BIANCA (PPO) [id number] 3 Samcielo Hutton [id number] BF Sam Hutton Notes Date Note Type [...] taking omeprazole as needed. MARY CAN MD [address] [place] [address], [address], [facility] - [facility] 02/13/2024 11:25:25
== END 2024-03-29 07:53 | disposition home or self-care (01) ==
LOC: HO.US 07:52
PROVIDERS: PCP Internal Medicine; Visit Provider Nurse Practitioner Family
DX: K76.0 Fatty (change of) liver, not elsewhere classified (principal)
CPT/HCPCS: 76705; 76981

== ENCOUNTER → 2024-03-29 07:53 | Outpatient (BNV) | payer BC, SELFPAY | PROVIDERS: PCP Internal Medicine; Visit Provider Radiology Diagnostic Radiology | DX: K76.0 Fatty (change of) liver, not elsewhere classified (principal) | CPT/HCPCS: 76705; 76981 ==

== ENCOUNTER 2024-03-31 18:53 | Emergency (ER) | payer BC, SELFPAY ==
--- NOTE | ~2024-03-31 | XR_ITS ---
CLINICAL HISTORY: chestpain 2 view chest x-ray Comparison: CR - XR CHEST 2V - 10/25/20 11:51 EDT Findings: The lungs are clear. Normal size heart. No acute fracture. IMPRESSION: 1. No acute findings. This document has been electronically signed by: Pierre Driscoll MD on 03/31/2024 20:17:44
--- NOTE | 2024-03-31 19:00 | ECG_ITS ---
Test Reason : CHEST PAIN Blood Pressure : */* mmHG Vent. Rate : 67 BPM Atrial Rate : 67 BPM P-R Int : 160 ms QRS Dur : 94 ms QT Int : 398 ms P-R-T Axes : 28 -46 16 degrees QTcB Int : 420 ms Normal sinus rhythm Left anterior fascicular block Abnormal ECG When compared with ECG of 27-Apr-2009 06:38, MANUAL COMPARISON REQUIRED PREVIOUS ECG IS INCOMPATIBLE Referred By: Haily Alicea Electronically Signed By: XIANG RENTERIA MD
[2024-03-31 19:16] VITALS: BP 142/85; PULSE 68; RESP 18; TEMP 36.6; O2SAT 96; BMI 34.5
--- NOTE | 2024-03-31 19:16 | ED_ITS ---
HPI - General Adult General Chief complaint: Chest Pain Stated complaint: Chest Pains Time Seen by Provider: 03/31/24 22:33 Related Data Previous Rx's ?Medication ?Instructions ?Recorded famotidine 20 mg tablet (Pepcid) 20 mg PO BEDTIME #90 tabs 07/29/23 cyclobenzaprine 10 mg tablet 10 mg PO BEDTIME #14 tabs 02/27/24 meloxicam 15 mg tablet 15 mg PO DAILY #14 tabs 02/27/24 esomeprazole magnesium 40 mg 40 mg PO DAILY #30 caps 03/29/24 capsule,delayed release (Nexium) Allergies Allergy/AdvReac Type Severity Reaction Status Date / Time No Known Allergies Allergy Mild NONE Verified 03/31/24 19:18 [facility] Past Medical History Medical History Class 2 severe obesity with body mass index (BMI) of 35 to 39.9 with serious comorbidity Obstructive sleep apnea Family history of cirrhosis of liver Family history of liver cancer Transaminitis Skin lesion of neck Encounter for screening colonoscopy High cholesterol GERD (gastroesophageal reflux disease) Surgical History History of dental surgery History of surgical removal of skin lesion (~12/13/21) History of hand surgery History of esophagogastroduodenoscopy (EGD) Hx of colonoscopy (~10/24/21) Family History Family History Father History of liver cancer Mother No problems noted. 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 Patient is a 58-year-old male with history of GERD, BLAS, high cholesterol presenting to the ED with complaint of chest pain and shortness of breath since shoveling on Friday. Plan: EKG, labs, CXR Medical Decision Making Lab Data 03/31/24 19:31 03/31/24 19:30 Labs: Lab Results 03/31/24 03/31/24 03/31/24 Range/Units 19:30 19: 22: WBC 7.1 (4.8-10.8) X10*3/uL RBC 4.69 (4.60-5.80) X10*6/uL Hgb 14.7 (14.0-18.0) g/dl Hct 39.9 L (42.0-52.0) % MCV 85.1 (80.0-98.0) fL MCH 31.3 (27.0-33.0) pg MCHC 36.8 H (31.0-36.0) g/dl RDW 12.1 (11.0-16.0) % Plt Count 201 (160-400) X10*3/uL MPV 10.3 (9.4-12.4) fL Immature Gran % (Auto) 0.3 (0.0-0.4) % Neut % (Auto) 56.1 (45-73) % Lymph % (Auto) 31.6 (20-40) % Pike % (Auto) 8.1 (2-11) % Eos % (Auto) 3.1 (0-4) % Baso % (Auto) 0.8 (0-2) % Lymph # (Auto) 2.3 (1.2-4.9) X10*3/uL Pike # (Auto) 0.6 (0.1-1.2) X10*3/uL Eos # (Auto) 0.2 (0.0-0.4) X10*3/uL Baso # (Auto) 0.1 (0.0-0.2) X10*3/uL Abs Immat Gran (auto) 0.02 (0.00-0.03) X10*3/uL Absolute Neuts (auto) 4.0 (2.0-8.3) x10*3/uL Absolute Nucleated RBC 0.000 (0.0-0.012) X10*3/uL Nucleated RBC % (auto) 0.0 (0.0-0.2) /100WBC PT 12.8 H (10.9-12.4) SEC INR 1.1 (0.9-1.1) Sodium 140 (135-145) mmol/L Potassium 3.4 (3.3-5.1) mmol/L Chloride 109 H (96-108) mmol/L Carbon Dioxide 24 (22-29) mmol/L Anion Gap 10 L (12-20) BUN 14 (9-16) mg/dL Creatinine 1.07 (0.5-1.4) mg/dL Estim Creat Clear Calc 86.7 Estimated GFR > 60 Random Glucose 92 (60-115) mg/dL Calcium 9.4 (8.4-10.2) mg/dL Total Bilirubin 1.0 (0.0-1.0) mg/dL AST 46 H (5-37) U/L ALT 79 H (0-40) U/L Alkaline Phosphatase 77 (39-117) U/L Troponin I High Sens < 2.7 < 2.7 (<3.5-35.0) ng/L Total Protein 7.4 (6.5-8.0) g/dL Albumin 4.4 (3.5-5.0) g/dL Influenza Type A (PCR) NEGATIVE (Negative) Influenza Type B (PCR) NEGATIVE (Negative) RSV RNA Qual (PCR) NEGATIVE (Negative) SARS-CoV-2 RNA (RT-PCR) NEGATIVE (Negative) Discharge Plan Discharge Clinical Impression: Chest pain Patient Disposition: Home, Self-Care Instructions: Chest Pain (ED), Gastroesophageal Reflux Disease (ED) Prescriptions: No Action famotidine [Pepcid] 20 mg tablet 20 mg PO BEDTIME Qty: 90 3RF cyclobenzaprine 10 mg tablet 10 mg PO BEDTIME Qty: 14 0RF meloxicam 15 mg tablet 15 mg PO DAILY Qty: 14 0RF esomeprazole magnesium [Nexium] 40 mg capsule,delayed release(DR/EC) 40 mg PO DAILY Qty: 30 5RF Referrals: Kenneth Bateman MD [Physician] - 04/02/24 Print Language: Persian
[2024-03-31 19:36] LABS: Basophils Absolute Auto 0.1 X10*3/uL (0.0-0.2); Basophils Percent Auto 0.8 % (0-2); Eosinophils Absolute Auto 0.2 X10*3/uL (0.0-0.4); Eosinophils Percent Auto 3.1 % (0-4); Hematocrit 39.9 % (42.0-52.0); Hemoglobin 14.7 g/dl (14.0-18.0); Imm Gran Abs Auto 0.02 X10*3/uL (0.00-0.03); Imm Gran Pct Auto 0.3 % (0.0-0.4); Lymphocytes Absolute Auto 2.3 X10*3/uL (1.2-4.9); Lymphocytes Percent Auto 31.6 % (20-40); MANUAL DIFF FLAG NO; Mean Corpuscular HGB Conc 36.8 g/dl (31.0-36.0); Mean Corpuscular Hemoglobin 31.3 pg (27.0-33.0); Mean Corpuscular Volume 85.1 fL (80.0-98.0); Mean Platelet Volume 10.3 fL (9.4-12.4); Monocytes Absolute Auto 0.6 X10*3/uL (0.1-1.2); Monocytes Percent Auto 8.1 % (2-11); Neutrophils Percent Auto 56.1 % (45-73); Platelet Count 201 X10*3/uL (160-400); Red Blood Count 4.69 X10*6/uL (4.60-5.80); Red Cell Distribution Width 12.1 % (11.0-16.0); White Blood Count 7.1 X10*3/uL (4.8-10.8)
[2024-03-31 19:50] LABS: Alanine Aminotransferase 79 U/L (0-40); Albumin Level 4.4 g/dL (3.5-5.0); Alkaline Phosphatase 77 U/L (39-117); Anion Gap 10 (12-20); Aspartate Amino Transferase 46 U/L (5-37); Blood Urea Nitrogen 14 mg/dL (9-16); Calcium 9.4 mg/dL (8.4-10.2); Carbon Dioxide 24 mmol/L (22-29); Chloride 109 mmol/L (96-108); Creatinine Clr Calc Pharmacy 86.7; Estimated Glomerular Filt Rate > 60; Glucose Random 92 mg/dL (60-115); Potassium 3.4 mmol/L (3.3-5.1); Sodium 140 mmol/L (135-145); Total Protein 7.4 g/dL (6.5-8.0)
[2024-03-31 19:54] LABS: INTERNATIONAL NORM RATIO 1.1 (0.9-1.1); Prothrombin Time 12.8 SEC (10.9-12.4)
[2024-03-31 20:02] LABS: Troponin-I High Sensitivity < 2.7 ng/L (<3.5-35.0)
[2024-03-31 20:18] LABS: Influenza A PCR NEGATIVE (Negative); Influenza B PCR NEGATIVE (Negative); Resp Syncy Virus RNA Qual PCR NEGATIVE (Negative); SARS COV2 PCR INHOUSE NEGATIVE (Negative)
[2024-03-31 22:47] LABS: Troponin-I High Sensitivity < 2.7 ng/L (<3.5-35.0)
--- NOTE | 2024-03-31 22:58 | ED.CHESTPAIN ---
HPI - Chest Pain General Chief Complaint: Chest Pain Stated Complaint: Chest Pains Time Seen by Provider: 03/31/24 22:33 History of Present Illness HPI narrative: patient is a 58-year-old male presents today with a history of GERD for the last 3 weeks. Patient said the mid chest pain is similar to his GERD pain it is burning. Not associated with shortness breath there is no diaphoresis. There is no fever there is no chills. Patient is pain is not associated with diaphoresis. Today he had a couple of shooting pain that lasts 2nd on the left side. He also had a slight cough for the last few days. No nausea no vomiting no diarrhea. Patient is from home. Related Data Previous Rx's ?Medication ?Instructions ?Recorded famotidine 20 mg tablet (Pepcid) 20 mg PO BEDTIME #90 tabs 07/29/23 cyclobenzaprine 10 mg tablet 10 mg PO BEDTIME #14 tabs 02/27/24 meloxicam 15 mg tablet 15 mg PO DAILY #14 tabs 02/27/24 esomeprazole magnesium 40 mg 40 mg PO DAILY #30 caps 03/29/24 capsule,delayed release (Nexium) Allergies Allergy/AdvReac Type Severity Reaction Status Date / Time No Known Allergies Allergy Mild NONE Verified 03/31/24 19:18 Review of Systems Review of Systems: Positive chest pain no shortness of breath no diaphoresis Yes all other systems are reviewed and are negative PMFSH Past Medical History Attestation statement: The following information was validated with the patient. Medical History Class 2 severe obesity with body mass index (BMI) of 35 to 39.9 with serious comorbidity Obstructive sleep apnea Family history of cirrhosis of liver Family history of liver cancer Transaminitis Skin lesion of neck Encounter for screening colonoscopy High cholesterol GERD (gastroesophageal reflux disease) Surgical History History of dental surgery History of surgical removal of skin lesion (~12/13/21) History of hand surgery History of esophagogastroduodenoscopy (EGD) Hx of colonoscopy (~10/24/21) Family History Family History Father History of liver cancer Mother No problems noted. 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 Oriented X3. No acute distress. Eyes: Pupils equal, round and reactive to light. ENT: Pharynx normal. Neck: Normal inspection. Neck supple. No lymph nodes noted. No crepitus CVS: Normal heart rate and rhythm. Pulses normal. Normal S1 and S2 Respiratory: No respiratory distress. Breath sounds normal. No Wheezing. No rales Abdomen: Soft and nontender. No rigidity. No distention. good BS x4 Skin: Skin warm and dry. Normal skin color. Normal skin turgor. Extremities: No lower extremity edema. Neurovascular intact to all extremities. No Lacerations. No Rash Neuro: Oriented X 3. No motor deficit. No sensory deficit. Moving all extermities. No slurred speech Medical Decision Making Medical Decision Making MDM Narrative: My interpretation of patient's EKG showed a sinus rhythm heart rate is 80 WI QRS QTC normal no acute ST segment elevation. Two sets of cardiac enzymes are negative. Patient's history not consistent with ACS. Patient have no significant cardiac risk factor. No history of diabetes no history of hypertension no history of high cholesterol no history of ME. no family history of ME. in the setting of negative EKG -2 sets of enzymes with having persistent pain for the last few days patient's unlikely to have ACS. Heart score is less than 3. Discussed with patient the need for follow-up with Cardiology. Discussed with patient the need to follow-up with GI. Reflux precaution. Close follow-up on an outpatient basis. My interpretation patient's chest x-ray was also negative for pneumonia no pneumothorax. History not consistent With PE Differential Diagnosis Differential Diagnoses: The differential diagnosis associated with the presentation includes pneumonia, pneumothorax, PE, ACS Admission/Observation Consideration of admission/observation: Escalation of care including admission/observation considered Consult Healthcare Provider Management of the patient was discussed with: Hospitalist and Manager [employer] Lab Data MDM Lab Attestation statement: I reviewed the patient's lab results. 03/31/24 19:31 03/31/24 19:30 Labs: Lab Results 03/31/24 03/31/24 03/31/24 Range/Units 19:30 19: 22:22 WBC 7.1 (4.8-10.8) X10*3/uL RBC 4.69 (4.60-5.80) X10*6/uL Hgb 14.7 (14.0-18.0) g/dl Hct 39.9 L (42.0-52.0) % MCV 85.1 (80.0-98.0) fL MCH 31.3 (27.0-33.0) pg MCHC 36.8 H (31.0-36.0) g/dl RDW 12.1 (11.0-16.0) % Plt Count 201 (160-400) X10*3/uL MPV 10.3 (9.4-12.4) fL Immature Gran % (Auto) 0.3 (0.0-0.4) % Neut % (Auto) 56.1 (45-73) % Lymph % (Auto) 31.6 (20-40) % Candler % (Auto) 8.1 (2-11) % Eos % (Auto) 3.1 (0-4) % Baso % (Auto) 0.8 (0-2) % Lymph # (Auto) 2.3 (1.2-4.9) X10*3/uL [place]ler # (Auto) 0.6 (0.1-1.2) X10*3/uL Eos # (Auto) 0.2 (0.0-0.4) X10*3/uL Baso # (Auto) 0.1 (0.0-0.2) X10*3/uL Abs Immat Gran (auto) 0.02 (0.00-0.03) X10*3/uL Absolute Neuts (auto) 4.0 (2.0-8.3) x10*3/uL Absolute Nucleated RBC 0.000 (0.0-0.012) X10*3/uL Nucleated RBC % (auto) 0.0 (0.0-0.2) /100WBC PT 12.8 H (10.9-12.4) SEC INR 1.1 (0.9-1.1) Sodium 140 (135-145) mmol/L Potassium 3.4 (3.3-5.1) mmol/L Chloride 109 H (96-108) mmol/L Carbon Dioxide 24 (22-29) mmol/L Anion Gap 10 L (12-20) BUN 14 (9-16) mg/dL Creatinine 1.07 (0.5-1.4) mg/dL Estim Creat Clear Calc 86.7 Estimated GFR > 60 Random Glucose 92 (60-115) mg/dL Calcium 9.4 (8.4-10.2) mg/dL Total Bilirubin 1.0 (0.0-1.0) mg/dL AST 46 H (5-37) U/L ALT 79 H (0-40) U/L Alkaline Phosphatase 77 (39-117) U/L Troponin I High Sens < 2.7 < 2.7 (<3.5-35.0) ng/L Total Protein 7.4 (6.5-8.0) g/dL Albumin 4.4 (3.5-5.0) g/dL Influenza Type A (PCR) NEGATIVE (Negative) Influenza Type B (PCR) NEGATIVE (Negative) RSV RNA Qual (PCR) NEGATIVE (Negative) SARS-CoV-2 RNA (RT-PCR) NEGATIVE (Negative) Independent Interpretation I performed an independent interpretation of an: EKG and Plain X-Ray Radiology Impression Discussion of test interpretation with radiology: I have reviewed the radiologist's reading. Independent Historian Clinical information obtained from an independent historian. History obtained from or confirmed by: Spouse External Record Review External record reviewed: Inpatient record and Office record ( cardiology record) Chronic Conditions history of reflux Discharge Plan Discharge Clinical Impression: Chest pain Patient Disposition: Home, Self-Care Instructions: Chest Pain (ED), Gastroesophageal Reflux Disease (ED) Prescriptions: No Action famotidine [Pepcid] 20 mg tablet 20 mg PO BEDTIME Qty: 90 3RF cyclobenzaprine 10 mg tablet 10 mg PO BEDTIME Qty: 14 0RF meloxicam 15 mg tablet 15 mg PO DAILY Qty: 14 0RF esomeprazole magnesium [Nexium] 40 mg capsule,delayed release(DR/EC) 40 mg PO DAILY Qty: 30 5RF Referrals: Kenneth Bateman MD [Physician] - 04/02/24 Print Language: French
[2024-03-31 23:15] VITALS: BP 136/78; PULSE 64; RESP 18; TEMP 36.7; O2SAT 97
[2024-03-31 23:45] VITALS: BP 136/78; PULSE 64; RESP 18; TEMP 36.7; O2SAT 97
== END 2024-04-01 00:08 | disposition home or self-care (01) ==
PROVIDERS: Registered Nurse Emergency; Emergency Provider Emergency Medicine Emergency Medical Services; PCP Internal Medicine
DX: R07.89 Other chest pain (principal); K21.9 Gastro-esophageal reflux disease without esophagitis; R61 Generalized hyperhidrosis; Z03.818 Encounter for observation for suspected exposure to other biological agents ruled out; Z79.899 Other long term (current) drug therapy
CPT/HCPCS: 0241U; 36415; 71046; 80053; 84484; 85025; 85610; 93005; 99283; 99284

== ENCOUNTER → 2024-03-31 19:00 | Outpatient (BNV) | payer BC, SELFPAY | PROVIDERS: Emergency Provider Emergency Medicine Emergency Medical Services; PCP Internal Medicine; Visit Provider Internal Medicine Cardiovascular Disease | DX: I44.4 Left anterior fascicular block (principal) | CPT/HCPCS: 93010 ==

== ENCOUNTER → 2024-03-31 19:18 | Outpatient (BNV) | payer BC, SELFPAY | PROVIDERS: PCP Internal Medicine; Visit Provider Radiology Diagnostic Radiology | DX: R07.9 Chest pain, unspecified (principal) | CPT/HCPCS: 71046 ==

== ENCOUNTER 2024-06-23 08:14 | Outpatient (REF) | payer BC, SELFPAY ==
--- NOTE | ~2024-06-23 | FL_ITS ---
EXAMINATION: XR FLUOROSCOPY ESOPHAGRAM CLINICAL INFORMATION: Patient complaining of reflux, epigastric and chest pain. Getting better on omeprazole. COMPARISON: None TECHNIQUE: Fluoroscopic air contrast upper GI examination was performed utilizing standard techniques with thin and thick barium and effervescent granules. Numerous spot images were obtained. Several fluoroscopic image hold cine sequences were also obtained. FINDINGS: UPPER GI SERIES: Lateral cine images of the oropharynx and hypopharynx demonstrate normal swallow mechanism with normal epiglottic inversion and soft palate elevation. No laryngeal penetration, glottic or subglottic aspiration identified. No nasopharyngeal reflux present. Hypopharyngeal structures appear normal without evidence of mass or diverticulum. There was no significant cricopharyngeal achalasia. Dual and single contrast images of the esophagus demonstrate normal caliber, contour, and mucosal pattern. No evidence of stricture, mass, or ulcerations identified. Esophageal peristalsis was normal. Small hiatus hernia, type I. Mild gastroesophageal reflux identified to the level of the aortic arch. Dual contrast and single contrast images of the stomach demonstrated normal contour. Diffuse thickening of the areae gastricae of the stomach noted. No of mass or gross ulceration. Normal rugal fold pattern. Contrast freely passed into the gastric antrum and duodenal bulb without delay. Single and air-contrast images of the duodenal bulb demonstrate no abnormality. The duodenal sweep has a normal appearance, course, and mucosal fold appearance. FLUOROSCOPY TIME: 2 minutes, 44 seconds Number of Spot Images:9 Number of cines obtained: 11 DOSE AREA PRODUCT: 3639 uGy-m2 (microgray-meter squared) FL/FL upper GI w air w Ba Swallow IMPRESSION: 1. Small type I hiatus hernia. 2. Mild gastroesophageal reflux identified to the level of the aortic arch. 3. Diffuse thickening of the areae gastricae of the stomach, suggestive of gastritis. 4. Remainder of the examination appears normal. Electronically signed by: Miguel Angel Nunez MD 06/23/2024 09:27 AM EDT
== END 2024-06-23 08:15 | disposition home or self-care (01) ==
LOC: HO.XRAY 08:14
PROVIDERS: PCP Internal Medicine; Visit Provider Nurse Practitioner Family
DX: K21.9 Gastro-esophageal reflux disease without esophagitis (principal); R13.10 Dysphagia, unspecified
CPT/HCPCS: 74246

== ENCOUNTER → 2024-06-23 08:17 | Outpatient (BNV) | payer BC, SELFPAY | PROVIDERS: PCP Internal Medicine; Visit Provider Radiology Diagnostic Radiology | DX: K21.9 Gastro-esophageal reflux disease without esophagitis (principal) | CPT/HCPCS: 74246 ==

== ENCOUNTER → 2024-07-15 16:01 | Outpatient (BNVA) | payer BC, SELFPAY | PROVIDERS: PCP Internal Medicine; Visit Provider Internal Medicine | DX: K21.9 Gastro-esophageal reflux disease without esophagitis (principal); G47.30 Sleep apnea, unspecified; R74.8 Abnormal levels of other serum enzymes; R73.03 Prediabetes; E66.9 Obesity, unspecified; Z68.35 Body mass index [BMI] 35.0-35.9, adult | CPT/HCPCS: 96127 ==

== ENCOUNTER 2024-07-15 16:10 | Outpatient (AMB) | payer BC, SELFPAY ==
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
[2024-07-15 16:12] VITALS: BP 132/76; PULSE 70; TEMP 36.3; O2SAT 98; BMI 35.5
== END 2024-07-15 17:13 | disposition home or self-care (01) ==
LOC: HO.HMCH 16:10
PROVIDERS: PCP Internal Medicine; Visit Provider Physician Assistant Medical
DX: K21.9 Gastro-esophageal reflux disease without esophagitis (principal); G47.30 Sleep apnea, unspecified; E66.9 Obesity, unspecified; Z68.35 Body mass index [BMI] 35.0-35.9, adult; R74.8 Abnormal levels of other serum enzymes; R73.03 Prediabetes

== ENCOUNTER → 2024-08-20 08:15 | Outpatient (REF) | payer BC, SELFPAY ==
--- NOTE | 2024-08-20 08:17 | CA_ITS ---
Transthoracic Echocardiogram Patient (Last, First, Middle): Sam Hutton, Gender: Male Date of : 1965 Age: 59 Procedure Date: 08/20/2024 Procedure Type: Transthoracic Echocardiogram Location: OP Height: 170.18 cm Weight: 99.79 kg BSA: 2.11 m2 Heart Rate: 53 bpm BP: 125 / 70 mmHg Granite Fabricator: LUCY Reynolds MD: Elenita Bray PA-C Senior Director Finance: Dat Nevarez MD Symptoms: R01.1 - Cardiac murmur, unspecified Study Quality: Adequate ECG Rhythm: Sinus Conclusions: - 1. Normal LV ejection fraction with LVEF of 60 65% 2. Normal cardiac valvular Dopplers 3. Upper limits of normal ascending aortic size 4. Normal LV systolic pressure 5. No gross pericardial effusion Findings Left Ventricle Normal left ventricular size, thickness, and systolic function. The visually estimated ejection fraction is between 60-65%. Spectral Doppler is indicative of a normal filling pattern. Right Ventricle Normal right ventricular cavity size and systolic function. Atria Both atria are normal in size. There is no evidence of interatrial shunt. Aortic Valve Normal aortic valve structure and function. There is no aortic valve stenosis. There is no aortic valve regurgitation. Mitral Valve Normal mitral valve structure and function. There is trace mitral valve regurgitation. There is no mitral valve stenosis. Pulmonic Valve The pulmonic valve is likely normal. Tricuspid Valve Normal tricuspid valve structure. There is trace tricuspid valve regurgitation. The right ventricular systolic pressure is normal. The right ventricular systolic pressure is 23 mmHg. Normal right atrial pressure. There is no evidence of pulmonary hypertension. Great Vessels The pulmonary artery was not well visualized. There is no dilatation of the ascending aorta measuring 3.50 cm. Venous The inferior vena cava is normal in size and collapses greater than 50% with inspiration. Pericardium/Pleural There is no evidence of pericardial effusion. Prior Study Comparison No prior study available for comparison. Measurements 2D Linear Measurements IVSd: 1.06 0.6-0.9/0.6-1.0 cm LVIDd: 4.64 3.9-5.3/4.2-5.9 cm LVIDd Index: 2.20 2.4-3.2/2.2-3.1 cm/m2 LVIDs: 2.58 2.0-3.6 cm LVPWd: 1.08 0.7-1.1 cm LA Diam: 3.90 2.7-3.8/3.0-4.0 cm LAIDs Index: 1.85 1.5-2.3 cm/m2 LV Mass: 220.24 67-162/88-224 g LV Mass Index: 104.38 43-95/49-115 g/m2 LVOT Diam: 2.20 3.0+(-)1.3 cm 2D Systolic Function EF 4C: 63.50 >55% EF 2C: 65.20 >55% EF BiP: 64.20 >55% Mitral Valve MV Pk E: 0.81 MV PK A: 0.75 MV Decel Time: 199.00 E/A: 1.10 E'Lateral: 9.90 E'Medial: 6.64 E/E' Med: 12.20 E/E' Lat: 8.20 PHT: 58.00 MVA PHT: 3.79 Decel [place]: 4.08 Aortic Valve AoV Pk Vick: 1.40 AoV Mn Vick: 0.86 AoV VTI: 0.29 AoV Pk Grad: 8.00 Aov Mn Grad: 4.00 GRZEGORZ Cont.VTI: 2.90 LVOT LVOT Pk Vick: 0.99 LVOT Mn Vick: 0.67 LVOT VTI: 0.22 LVOT Pk Grad: 4.00 LVOT Mn Grad: 2.00 LVOT Diam: 2.20 LVOT Area: 3.80 Diastolic Function MV Pk E: 0.81 MV Pk A: 0.75 E/A: 1.10 E'Medial: 6.64 E/E' Med: 12.20 E' Laterial: 9.90 E/E' Lat: 8.20 Right Ventricle TAPSE (mm): 24.80 TVS' Vick: 11.10 Tricuspid Valve TR Pk Vick: 1.91 TR Pk Grad: 15.00 RA Press: 8.00 RVSP: 23.00 Great Vessels Aorta Sinus of Valsalva: 3.50 2.0-3.5 cm Ao Asc: 3.50 2.1-3.4 cm Ao Arch: 3.00 Pulmonary Valve PV Pk Vick: 1.10 Peak PV Grad: 5.00 Updated in Other Vendor System with Status of Final Dat Nevarez MD electronically signed on 08/21/2024 12:22:17 PM with status of Final
== END ==
LOC: HO.CARD 08:15
PROVIDERS: PCP Internal Medicine; Visit Provider Physician Assistant Medical
DX: R01.1 Cardiac murmur, unspecified (principal)
CPT/HCPCS: 93306

== ENCOUNTER → 2024-08-20 08:17 | Outpatient (BNV) | payer BC, SELFPAY | PROVIDERS: PCP Internal Medicine; Visit Provider Internal Medicine Cardiovascular Disease | DX: R01.1 Cardiac murmur, unspecified (principal) | CPT/HCPCS: 93306 ==

== ENCOUNTER 2024-09-22 10:14 | Outpatient (AMB) | payer BC, SELFPAY ==
--- NOTE | 2024-09-22 10:17 | MHC.PC.OV ---
Vital Signs 09/22/24 10:21 Height 5 ft 7 in Weight 224 lb 8 oz BMI 35.2 BP 120/84 Blood Pressure Location Rt brachial Position Sitting Respiration 16 Pulse 73 Pulse Source Pulse Oximeter Temp 97.9 F Temp Source Temporal Artery Scan Pulse Oximetry (%) 96 Oxygen Delivery Method Room Air Intake Visit Reasons: worsening ribcage pain s/p strain 2 weeks ago Intake Note: Patient is here to follow up on GERD, BLAS. Rubber Tubing Splicer Required: No Hoister: Not Required per policy Accompanied by: Self / Same As Patient Allergies No Known Allergies Allergy (Mild, Verified 09/22/24 11:01) NONE Medication List - Last Reconciled 09/22/24 by Elenita Bray PA-C cyclobenzaprine 10 mg PO BEDTIME esomeprazole magnesium (Nexium) 40 mg PO DAILY famotidine (Pepcid) 20 mg PO BEDTIME meloxicam 15 mg PO DAILY Tobacco use date assessed: 07/15/24 Dental Screening Dental Screen Date: 07/15/24 Did you have a dental visit in the last 12 months?: Yes Did you have a dental problem in the last 6 months where you did not have access to dental care?: No Was dental information given to patient?: Patient has dentist HPI worsening ribcage pain s/p strain 2 weeks ago HPI Details The patient is a 59-year-old male presenting with rib cage pain. The pain began approximately three weeks ago after playing softball, and it has progressively worsened. The patient reports tenderness in the left upper and mid abdomen, left flank, and costovertebral angle tenderness on the left side. The patient also reports a history of hamstring strain, which occurred while playing softball. He did not experience immediate pain but noticed discomfort later that day. The patient has a history of gastritis, identified through an upper GI series showing thickening of the gastric lining. The automotive product specialist advised that it was not a significant concern at the moment. An ultrasound performed a year ago revealed potential kidney stones in the right kidney, though the patient is currently experiencing left-sided pain. The patient also has a history of a hiatus hernia and acid reflux, identified through a barium swallow test. Social History - Exercise: The patient engages in physical activity by playing softball. - Family: The patient plays softball to engage with his son. [facility] Medical History (Updated 09/22/24 @ 11:08 by Elenita Bray PA-C) HH (hiatus hernia) Gastritis Hamstring strain Rib pain on left side Left lateral abdominal pain Obesity (BMI 35.0-39.9 without comorbidity) Prediabetes Elevated liver enzymes Sleep apnea Heart murmur Class 2 severe obesity with body mass index (BMI) of 35 to 39.9 with serious comorbidity Obstructive sleep apnea Family history of cirrhosis of liver Family history of liver cancer Transaminitis Skin lesion of neck Encounter for screening colonoscopy High cholesterol GERD (gastroesophageal reflux disease) Surgical History History of dental surgery History of surgical removal of skin lesion (~12/13/21) History of hand surgery History of esophagogastroduodenoscopy (EGD) Hx of colonoscopy (~10/24/21) Family History Father History of liver cancer Mother No problems noted. Social History Household Members: Spouse Housing: House Alcohol intake: current Alcohol intake frequency: holidays/special occasions only Patient Tobacco Use Status: Never used Tobacco e-Cigarette/Vaping Use: Never Used Second Hand Smoke Exposure: No service: No Current occupational status: employed Cognitive needs: No Hearing needs: No Vision needs: No Questionnaire PHQ-9 Over the last 2 weeks, how often have you been bothered by any of the following problems? 1. Little interest or pleasure in doing things: not at all 2. Feeling down, depressed, or hopeless: not at all 3. Trouble falling or staying asleep, or sleeping too much: not at all 4. Feeling tired or having little energy: not at all 5. Poor appetite or overeating: not at all 6. Feeling bad about yourself - or that you are a failure or have let yourself or your family down: not at all 7. Trouble concentrating on things, such as reading the newspaper or watching television: not at all 8. Moving or speaking so slowly that other people could have noticed. Or the opposite - being so fidgety or restless that you have been moving around a lot more than usual: not at all 9. Thoughts that you would be better off or of hurting yourself in some way: not at all Total score: 0 Depression Screening Interpretation: Negative Depression Screening Done: Yes 14991 - PHQ-9 Billing: Yes Source: Developed by Drs. Jair Tolliver, Mignon Cespedes, Eddie Renee and colleagues, with an educational rhianna from [employer]. Thrive Questionnaire Date Thrive assessed: 07/15/24 I am a: Patient What is your living situation today?: I have a steady place to live Within the past 12 months, did the food you bought not last and you didn't have the money to get more?: Never true Within the past 12 months, did you worry whether your food would run out before you got money to buy more?: Never true Do you have trouble paying for medicines?: No Do you have trouble getting transportation to medical appointments?: No Do you have trouble paying your heating and electricity bill?: No Do you have trouble taking care of your child, family member or friend?: No Do you have trouble with day-to-day activities such as bathing, preparing meals, shopping, managing finances, etc.?: No Are you currently unemployed and looking for a job?: No Are you interested in more education?: No Please select the resources that you would like help with: None Currently or been in a relationship where the following occur: No concerns reported THRIVE Score: 0 AUDIT C Alcohol Use Questionnaire (AUDIT-C) 1. How often do you have a drink containing alcohol?: Monthly or less 2. How many drinks containing alcohol do you have on a typical day when you are drinking?: 1 or 2 Total Score: 1 Score Reviewed/Action Taken: No AGATHA-7 AMB Questionnaire AGATHA-7 Date AGATHA - 7 assessed: 07/15/24 Feeling nervous, anxious, or on edge: 0 = Not at all Not being able to stop or control worryin = Not at all Worrying too much about different things: 0 = Not at all Trouble relaxin = Not at all Being so restless that it is hard to sit still: 0 = Not at all Becoming easily annoyed or irritable: 0 = Not at all Feeling afraid as if something awful might happen: 0 = Not at all Total AGATHA-7 score (0-4 normal; 5-9 mild; 10-14 moderate; 15-21 severe): 0 Source: Developed by Drs. Jair Tolliver, Mignon Cespedes, Eddie Renee and colleagues, with an educational rhianna from [employer]. AGATHA-7 Assessment Billing AGATHA-7 Assessment Tool: AGATHA-7 Assessment 02654 Review of Systems Const Details: - Gastrointestinal: Reports tenderness in the left upper and mid abdomen. Denies nausea, vomiting, and changes in bowel habits. - Musculoskeletal: Reports rib cage pain and hamstring strain. - General: Denies chest pain. Physical exam (Primary Care) Vital Signs: Last Vital Signs Temp 97.9 F 09/22/24 10:21 Pulse 73 09/22/24 10:21 Resp 16 09/22/24 10:21 BP 120/84 09/22/24 10:21 Pulse Ox 96 09/22/24 10:21 Oxygen Delivery Method Room Air 09/22/24 10:21 Care Plan Goal for BP management: <140/90 at Goal BMI result Body Mass Index 35.2 Tobacco/Smoking Status: Tobacco use Status Tobacco use date assessed 07/15/24 09/22/24 10:18 Patient Tobacco Use Status Never used Tobacco 09/22/24 10:18 e-Cigarette/Vaping Use Never Used 09/22/24 10:18 PHQ-9: PHQ-9 Score PHQ-9: Total score 0 09/22/24 10:50 Depression Screening Interpretation: Negative Thrive Assessment: Date of Thrive Assessment Date Thrive assessed 07/15/24 09/22/24 10:18 Currently or been in a relationship where the following occur: No concerns reported Const Other: Appearance: Alert. Oriented X3. No acute distress. Head: Normal external exam. Normocephalic. Atraumatic. Eyes: Pupils are equal, round, and reactive to light. Extraocular movements intact. Conjunctiva and sclera normal. Eyelids normal. Throat: Pharynx normal. Uvula midline. Moist mucous membranes. Neck: Normal inspection. Neck supple. Full range of motion. Cardiovascular: Normal heart rate and rhythm. Respiratory: No respiratory distress. Painless inspiration. Abdomen: Soft and nontender. Tenderness noted in the left upper and mid-abdomen, left flank, and CVA (costovertebral angle) tenderness on the left side. Bowel sounds normal in all 4 quadrants. No distention noted. No organomegaly noted. No visible injury noted. Back: Positive CVA tender on left side. No costovertebral angle tenderness on the right. Full range of motion noted. Skin: Skin warm and dry. Normal skin color. Normal skin turgor. No rashes/lesions/lacerations noted. Extremities: Extremities exhibit normal range of motion Neuro: Oriented X 3. No motor deficit. No sensory deficit. Reflexes normal. Results Reviewed Results Reviewed: - Upper GI series: Thickening of the gastric lining suggesting gastritis. - Ultrasound: Potential kidney stones in the right kidney. - Barium swallow: Hiatus hernia and acid reflux identified. Coding Level of Care Code Est Pt Level 4 (60070) Complex EM visit Add On G2211 Diagnoses Rib pain on left side R07.81 Hamstring strain S76.319A Gastritis K29.70 Left lateral abdominal pain R10.9 HH (hiatus hernia) K44.9 Additional Codes AGATHA-7 Assessment Billing - AGATHA-7 Assessment Tool: AGATHA-7 Assessment 73652 ([id number]) PHQ-9 - 05907 - PHQ-9 Billing: Yes ([id number]) Assessment & Plan Assessment & Plan (1) Rib pain on left side: Code(s): R07.81 - Pleurodynia Category: Medical Plan: The patient will undergo rib x-rays to assess for any fractures or other abnormalities. A CAT scan of the abdomen will be performed to rule out any underlying issues with the kidneys or pancreas. Blood work and urine tests will be conducted to evaluate kidney function and check for any signs of infection or other abnormalities. (2) Hamstring strain: Code(s): S76.319A - Strain of muscle, fascia and tendon of the posterior muscle group at thigh level, unspecified thigh, initial encounter Category: Medical Plan: The patient is advised to rest and avoid activities that may exacerbate the strain. (3) Gastritis: Code(s): K29.70 - Gastritis, unspecified, without bleeding Category: Medical Plan: The patient is advised to continue monitoring symptoms and follow up with the automotive product specialist as needed. (4) Left lateral abdominal pain: Code(s): R10.9 - Unspecified abdominal pain Category: Medical Plan: The patient will have a CAT scan to further evaluate the presence of kidney stones, particularly on the left side where pain is reported. (5) HH (hiatus hernia): Code(s): K44.9 - Diaphragmatic hernia without obstruction or gangrene Category: Medical Plan: The patient is advised to manage symptoms of acid reflux and follow up with the automotive product specialist if symptoms persist. Plan Plan Patient was informed and verbally consented to the use of an ambient scribe for clinic note documentation during this visit. 1. Rib Cage Pain The patient will undergo rib x-rays to assess for any fractures or other abnormalities. A CAT scan of the abdomen will be performed to rule out any underlying issues with the kidneys or pancreas. Blood work and urine tests will be conducted to evaluate kidney function and check for any signs of infection or other abnormalities. 2. Hamstring Strain The patient is advised to rest and avoid activities that may exacerbate the strain. 3. Gastritis The patient is advised to continue monitoring symptoms and follow up with the automotive product specialist as needed. 4. Possible Kidney Stones The patient will have a CAT scan to further evaluate the presence of kidney stones, particularly on the left side where pain is reported. 5. Hiatus Hernia The patient is advised to manage symptoms of acid reflux and follow up with the automotive product specialist if symptoms persist. I discussed with the patient the need for rib x-rays and a CAT scan to evaluate the cause of his rib cage pain and to rule out any underlying issues with the kidneys or pancreas. We also talked about the importance of blood work and urine tests to check kidney function and for any signs of infection. The patient was advised to rest and avoid activities that could worsen his hamstring strain. We reviewed the findings of his previous upper GI series and ultrasound, and I advised him to follow up with his automotive product specialist as needed. Orders: Orders UA CC w/rflx Micro + Cult Today R10.9 - Unspecified abdominal pain Amylase Today R10.9 - Unspecified abdominal pain Lipase Today R07.81 - Pleurodynia CT abdomen pelvis wo IV con Today R10.9 - Unspecified abdominal pain Comprehensive Met. Panel Today Z00.00 - Encounter for general adult medical examination without abnormal findings XR ribs LT min 3V w CXR1V Today R07.81 - Pleurodynia Creatine Kinase Total Today Z00.00 - Encounter for general adult medical examination without abnormal findings Patient Instructions: - Get rib x-rays and a CAT scan as soon as possible. - Complete blood work and urine tests to check kidney function. - Rest and avoid activities that may worsen the hamstring strain. - Follow up with your automotive product specialist if symptoms of gastritis or acid reflux persist.
[2024-09-22 10:21] VITALS: BP 120/84; PULSE 73; RESP 16; TEMP 36.6; O2SAT 96; BMI 35.2
--- OUTSIDE RECORDS SUMMARY | 2024-09-22 10:47 | XMS_ITS | Patient Health Record ---
Author Organization [facility] Address [address] [place] [address] Care Team Providers Care Tipple Mechanic Name Role Phone Meena (RETIRED) Les LERNER Primary Care Provide r Unavailable Jair Kwok Unavailable [phone] Reason For Referral No Information Problems Problem Type SNOMED Code ICD Code Onset Dates Problem Status W/U Status Risk Notes Problem Chronic nonalcoholic liver disease (33563534) Other chronic nonalcoholic liver disease (571.8) Active confirmed Problem Liver function tests abnormal (102222865) Nonspecific abnormal results of liver function study (794.8) Active confirmed Plan Of Treatment Future Test Test Name Order Date LIVER PROFILE 01/10/2011 Insurance Providers Payer Name Payer Address Payer Phone Subscriber Number Group Number Insured Name Patient Relationship to Insured Coverage Start Date Coverage End Date [facility] [address] [place] [phone] [id number] FLORIDALMA GARRIDO Self - patient is the insured Medical (General) History Medical History History ICD Code Fatty liver his only new history is that of sleep apnea, for which he uses a CPAP machine at home Elevated LFT's ? Hyperlipidemia Denies AR,DM,CVA,Lung disease,renal dise ase Surgical History Surgery Date(Month/Year) as per previous records, no new history since I last saw him
== END 2024-09-22 10:59 | disposition home or self-care (01) ==
LOC: HO.HMCSH 10:14
PROVIDERS: PCP Internal Medicine; Visit Provider Physician Assistant Medical
DX: R07.81 Pleurodynia (principal); S76.319A Strain of muscle, fascia and tendon of the posterior muscle group at thigh level, unspecified thigh, initial encounter; K29.70 Gastritis, unspecified, without bleeding; R10.9 Unspecified abdominal pain; K44.9 Diaphragmatic hernia without obstruction or gangrene

== ENCOUNTER 2024-09-22 10:14 | Outpatient (REF) | payer BC, SELFPAY ==
--- NOTE | ~2024-09-22 | XR_ITS ---
EXAMINATION: XR RIBS 3 VIEWS MINIMUM WITH CHEST LEFT HISTORY: R07.81 - Pleurodynia COMPARISON: Correlation is made with PA and lateral views of the chest dated 03/31/2024. FINDINGS: A single PA view of the chest and 3 views of the left ribs are submitted. The lungs are expanded and clear. There is no pleural effusion, pneumothorax, or pulmonary vascular congestion. The heart is normal in size. The left ribs are intact. No fracture is seen. XR/XR ribs LT min 3V w CXR1V IMPRESSION: No evidence of fracture of the left ribs. Electronically signed by: Jair Lagos MD 09/22/2024 11:48 AM EDT
[2024-09-22 11:24] LABS: MANUAL DIFF FLAG NO
[2024-09-22 11:31] LABS: Hematocrit 46.2 % (42.0-52.0); Hemoglobin 17.2 g/dl (14.0-18.0); Imm Gran Abs Auto 0.06 X10*3/uL (0.00-0.03); Imm Gran Pct Auto 0.9 % (0.0-0.4); Lymphocytes Absolute Auto 1.9 X10*3/uL (1.2-4.9); Mean Corpuscular HGB Conc 37.2 g/dl (31.0-36.0); Mean Corpuscular Hemoglobin 31.5 pg (27.0-33.0); Mean Corpuscular Volume 84.6 fL (80.0-98.0); NRBC Abs Auto 0.000 X10*3/uL (0.0-0.012); NRBC Pct Auto 0.0 /100WBC (0.0-0.2); Platelet Count 219 X10*3/uL (160-400); Red Blood Count 5.46 X10*6/uL (4.60-5.80); White Blood Count 7.0 X10*3/uL (4.8-10.8)
[2024-09-22 11:51] LABS: Hemoglobin A1C 143.5070 umol/L; Total Hemoglobin (HGBA1C) 4316.4418 umol/L
[2024-09-22 12:10] LABS: Appearance Urine Clear; Glucose Urine UA Negative (Negative); PH 5.5 (5.0-9.0); Specific Gravity - Urine 1.025 (1.005-1.025)
[2024-09-22 12:16] LABS: Alanine Aminotransferase 69 U/L (0-40); Albumin Level 4.1 g/dL (3.5-5.0); Alkaline Phosphatase 73 U/L (39-117); Amylase 52 U/L (28-100); Anion Gap 9 (12-20); Aspartate Amino Transferase 51 U/L (5-37); Blood Urea Nitrogen 11 mg/dL (9-16); Calcium 8.5 mg/dL (8.4-10.2); Carbon Dioxide 26 mmol/L (22-29); Chloride 110 mmol/L (96-108); Estimated Glomerular Filt Rate > 60; Lipase 20 U/L (8-78); Magnesium 2.0 mg/dL (1.6-2.6); Potassium 3.9 mmol/L (3.3-5.1); Sodium 141 mmol/L (135-145); Total Protein 6.4 g/dL (6.5-8.0)
[2024-09-22 12:37] LABS: PSA,Total (Free>4and<10) 0.17 ng/mL (0.00-4.00)
[2024-09-22 12:54] LABS: Folate 9.5 ng/mL (> or = 4.0); Vitamin B12 316 pg/mL (200-900)
== END 2024-09-22 10:15 | disposition home or self-care (01) ==
LOC: HO.XRAY 10:14
PROVIDERS: PCP Internal Medicine; Visit Provider Physician Assistant Medical
DX: R07.81 Pleurodynia (principal); K29.70 Gastritis, unspecified, without bleeding; R10.9 Unspecified abdominal pain; K44.9 Diaphragmatic hernia without obstruction or gangrene; S76.319A Strain of muscle, fascia and tendon of the posterior muscle group at thigh level, unspecified thigh, initial encounter; X58.XXXA Exposure to other specified factors, initial encounter; Y93.64 Activity, baseball; Y92.9 Unspecified place or not applicable; Y99.9 Unspecified external cause status; Z00.00 Encounter for general adult medical examination without abnormal findings; Z13.1 Encounter for screening for diabetes mellitus; Z12.5 Encounter for screening for malignant neoplasm of prostate; Z13.31 Encounter for screening for depression
CPT/HCPCS: 36415; 71101; 80053; 81003; 82150; 82248; 82306; 82550; 82607; 82627; 82642; 82746; 83036; 83690; 83735; 84153; 84403; 85025; 86140; 96127

== ENCOUNTER → 2024-09-22 11:27 | Outpatient (BNV) | payer BC, SELFPAY | PROVIDERS: PCP Internal Medicine; Visit Provider Radiology Diagnostic Radiology | DX: R07.81 Pleurodynia (principal) | CPT/HCPCS: 71101 ==

== ENCOUNTER 2024-10-09 08:16 | Outpatient (REF) | payer BC, SELFPAY ==
--- NOTE | ~2024-10-09 | CT_ITS ---
CLINICAL HISTORY: R10.9 - Unspecified abdominal pain CT abdomen and pelvis without IV or oral contrast Comparison: US/IA/SR - US ABDOMEN NIELSEN W ELASTOGRAPHY - 03/29/24 08:00 EST Findings: Lung bases show no active disease. No dependent layering pleural effusions. The heart is not enlarged. Punctate 1 mm caliceal stone right kidney. No ureterolithiasis are identified in the ureters or bladder. There is no hydronephrosis or perinephric stranding/fluid. Evaluation of the liver, spleen, adrenal glands and pancreas demonstrates no lesions. It should be noted that isodense masses may be obscured in the absence of intravenous contrast. No radiopaque gallstones. Normal appendix. No pathologically enlarged lymph nodes . No ascites demonstrated. Partially decompressed urinary bladder. Can not exclude mild cystitis. No prostatomegaly. No vertebral body compression fractures or spondylolisthesis. No bony destructive lesions. Impression: 1. Right nephrolithiasis. No urolithiasis or urinary tract obstruction demonstrated. 2. Partially decompressed urinary bladder can not exclude mild cystitis. 3. No radiopaque gallstones. Normal appendix. This document has been electronically signed by: Tl Hobbs MD on 10/09/2024 09:50:04
--- OUTSIDE RECORDS SUMMARY | 2024-10-09 08:19 | XMS_ITS | Patient Health Record ---
Author Organization [facility] Address [address] [place] [address] Care Team Providers Care Associate Designer Name Role Phone Meena (RETIRED) Les LERNER Primary Care Provide r Unavailable Jair Kwok Unavailable [phone] Reason For Referral No Information Problems Problem Type SNOMED Code ICD Code Onset Dates Problem Status W/U Status Risk Notes Problem Chronic nonalcoholic liver disease (60057834) Other chronic nonalcoholic liver disease (571.8) Active confirmed Problem Liver function tests abnormal (759998298) Nonspecific abnormal results of liver function study (794.8) Active confirmed Plan Of Treatment Future Test Test Name Order Date LIVER PROFILE 01/10/2011 Insurance Providers Payer Name Payer Address Payer Phone Subscriber Number Group Number Insured Name Patient Relationship to Insured Coverage Start Date Coverage End Date [facility] [address] [place] [phone] [id number] FLORIDALMA GARRIDO Self - patient is the insured Medical (General) History Medical History History ICD Code Fatty liver his only new history is that of sleep apnea, for which he uses a CPAP machine at home Elevated LFT's ? Hyperlipidemia Denies SD,DM,CVA,Lung disease,renal dise ase Surgical History Surgery Date(Month/Year) as per previous records, no new history since I last saw him
== END 2024-10-09 08:17 | disposition home or self-care (01) ==
LOC: HO.CT 08:16
PROVIDERS: PCP Physician Assistant Medical; Visit Provider Physician Assistant Medical
DX: R10.9 Unspecified abdominal pain (principal)
CPT/HCPCS: 74176

== ENCOUNTER → 2024-10-09 08:45 | Outpatient (BNV) | payer BC, SELFPAY | PROVIDERS: PCP Physician Assistant Medical; Visit Provider Radiology Diagnostic Radiology | DX: N20.0 Calculus of kidney (principal) | CPT/HCPCS: 74176 ==

== ENCOUNTER 2024-12-31 14:31 | Outpatient (AMB) | payer BC, SELFPAY ==
[2024-12-31 14:35] VITALS: BP 137/63; PULSE 65; TEMP 36.6; O2SAT 97; BMI 35.9
--- NOTE | 2024-12-31 14:35 | MHC.PC.OV ---
Vital Signs 12/31/24 14:35 Height 5 ft 7 in Weight 229 lb BMI 35.9 BP 137/63 Blood Pressure Location Rt brachial Position Sitting Pulse 65 Pulse Source Pulse Oximeter Temp 97.9 F Temp Source Temporal Artery Scan Pulse Oximetry (%) 97 Oxygen Delivery Method Room Air Intake Visit Reasons: Follow up Intake Note: has been having left side pain on his left arm. 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 Accompanied by: Spouse Allergies No Known Allergies Allergy (Mild, Verified 12/31/24 15:31) NONE Medication List - Last Reconciled 12/31/24 by Elenita Bray PA-C cholecalciferol (vitamin D3) 25 mcg PO DAILY esomeprazole magnesium (Nexium) 40 mg PO DAILY famotidine (Pepcid) 20 mg PO BEDTIME prednisone 20 mg PO DAILY 5 days Tobacco use date assessed: 12/31/24 Dental Screening Dental Screen Date: 12/31/24 Did you have a dental visit in the last 12 months?: Yes Did you have a dental problem in the last 6 months where you did not have access to dental care?: No Was dental information given to patient?: Patient has dentist HPI Follow up HPI Details The patient is a 59-year-old male presenting with elbow pain and swelling, suspected to be tendonitis or tennis elbow. The patient reports experiencing major pain in the elbow for approximately three weeks, with occasional loss of strength in the fingers. 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 The patient has a history of hiatal hernia and gastroesophageal reflux disease (GERD), for which he takes omeprazole and Pepcid. He is aware of the potential risks of prolonged acid reflux, including esophageal cancer, and is advised to continue his current medication regimen. The patient has a history of kidney stones, with imaging confirming the presence of stones on the right side. He has not experienced significant pain from the stones and is advised to maintain hydration to facilitate passage. The patient has a family history of liver cancer, prompting regular monitoring of liver enzymes. His recent blood work showed a slightly elevated bilirubin level, but no abdominal pain was reported. The patient was found to have vitamin D deficiency and has been prescribed vitamin D supplements. 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 [facility] Medical History (Updated 12/31/24 @ 15:39 by Elenita Bray PA-C) Kidney stones Left arm swelling Left forearm pain Left elbow pain Vitamin D deficiency HH (hiatus hernia) Gastritis Hamstring strain Rib pain on left side Left lateral abdominal pain Obesity (BMI 35.0-39.9 without comorbidity) Prediabetes Elevated liver enzymes Sleep apnea Heart murmur Class 2 severe obesity with body mass index (BMI) of 35 to 39.9 with serious comorbidity Obstructive sleep apnea Family history of cirrhosis of liver Family history of liver cancer Transaminitis Skin lesion of neck Encounter for screening colonoscopy High cholesterol GERD (gastroesophageal reflux disease) Surgical History History of dental surgery History of surgical removal of skin lesion (~12/13/21) History of hand surgery History of esophagogastroduodenoscopy (EGD) Hx of colonoscopy (~10/24/21) Family History Father History of liver cancer Mother No problems noted. Social History Household Members: Spouse Housing: House Alcohol intake: current Alcohol intake frequency: holidays/special occasions only Patient Tobacco Use Status: Never used Tobacco e-Cigarette/Vaping Use: Never Used Second Hand Smoke Exposure: No service: No Current occupational status: employed Cognitive needs: No Hearing needs: No Vision needs: No Questionnaire PHQ-9 Over the last 2 weeks, how often have you been bothered by any of the following problems? 1. Little interest or pleasure in doing things: not at all 2. Feeling down, depressed, or hopeless: not at all 3. Trouble falling or staying asleep, or sleeping too much: not at all 4. Feeling tired or having little energy: not at all 5. Poor appetite or overeating: not at all 6. Feeling bad about yourself - or that you are a failure or have let yourself or your family down: not at all 7. Trouble concentrating on things, such as reading the newspaper or watching television: not at all 8. Moving or speaking so slowly that other people could have noticed. Or the opposite - being so fidgety or restless that you have been moving around a lot more than usual: not at all 9. Thoughts that you would be better off or of hurting yourself in some way: not at all Total score: 0 Depression Screening Interpretation: Negative Depression Screening Done: Yes 62009 - PHQ-9 Billing: Yes Source: Developed by Drs. Jair Tolliver, Mignon Cespedes, Eddie Renee and colleagues, with an educational rhianna from [employer]. Thrive Questionnaire Date Thrive assessed: 12/31/24 I am a: Patient What is your living situation today?: I have a steady place to live Within the past 12 months, did the food you bought not last and you didn't have the money to get more?: Never true Within the past 12 months, did you worry whether your food would run out before you got money to buy more?: Never true Do you have trouble paying for medicines?: No Do you have trouble getting transportation to medical appointments?: No Do you have trouble paying your heating and electricity bill?: No Do you have trouble taking care of your child, family member or friend?: No Do you have trouble with day-to-day activities such as bathing, preparing meals, shopping, managing finances, etc.?: No Are you currently unemployed and looking for a job?: No Are you interested in more education?: No Please select the resources that you would like help with: None Currently or been in a relationship where the following occur: No concerns reported THRIVE Score: 0 AUDIT C Alcohol Use Questionnaire (AUDIT-C) 1. How often do you have a drink containing alcohol?: Monthly or less 2. How many drinks containing alcohol do you have on a typical day when you are drinking?: 1 or 2 Total Score: 1 Score Reviewed/Action Taken: No AGATHA-7 AMB Questionnaire AGATHA-7 Date AGATHA - 7 assessed: 07/15/24 Source: Developed by Drs. Jair Tolliver, Mignon Cespedes, Eddie Renee and colleagues, with an educational rhianna from [employer]. Review of Systems Const Details: - Musculoskeletal: Reports major pain in the elbow for three weeks, with occasional loss of strength in the fingers. - Gastrointestinal: Reports acid reflux, denies abdominal pain. All systems reviewed & are unremarkable except as noted in HPI and below Physical exam (Primary Care) Vital Signs: Last Vital Signs Temp 97.9 F 12/31/24 14:35 Pulse 65 12/31/24 14:35 BP 137/63 12/31/24 14:35 Pulse Ox 97 12/31/24 14:35 Oxygen Delivery Method Room Air 12/31/24 14:35 Care Plan Goal for BP management: <140/90 at Goal BMI result Body Mass Index 35.9 BMI Assessment/Plan discussion: High BMI High, discussed plan: lifestyle, weight reduction, dietary, physical activity, alcohol moderation and other Tobacco/Smoking Status: Tobacco use Status Tobacco use date assessed 12/31/24 12/31/24 14:37 Patient Tobacco Use Status Never used Tobacco 12/31/24 14:37 e-Cigarette/Vaping Use Never Used 12/31/24 14:37 PHQ-9: PHQ-9 Score PHQ-9: Total score 0 12/31/24 14:37 Depression Screening Interpretation: Negative Thrive Assessment: Date of Thrive Assessment Date Thrive assessed 12/31/24 12/31/24 14:37 Currently or been in a relationship where the following occur: No concerns reported Const Other: Appearance: Alert. Oriented X3. No acute distress. Head: Normal external exam. Normocephalic. Atraumatic. Eyes: Pupils are equal, round, and reactive to light. Extraocular movements intact. Conjunctiva and sclera normal. Eyelids normal. Throat: Pharynx normal. Uvula midline. Moist mucous membranes. Neck: Normal inspection. Neck supple. Full range of motion. Cardiovascular: Normal heart rate and rhythm. Respiratory: No respiratory distress. Painless inspiration. Back: Full range of motion noted. Skin: Skin warm and dry. Normal skin color. Normal skin turgor. No rashes/lesions/lacerations noted. Extremities: Mild soft tissue swelling to left upper extremity from the elbow joint down to the forearm dorsal aspect with tenderness to palpation. Patient does have some tenderness to the left elbow and forearm although he has good range of motion. Not consistent with septic joint. No rashes or lesions noted. Normal pulses to the radius noted. No cyanosis. Normal capillary refill to the fingernails. All other extremities exhibit normal range of motion nontender. Neuro: Oriented X 3. No motor deficit. No sensory deficit. Reflexes normal. Office Procedures Flu Questionnaire Does the patient have a severe egg allergy?: No Does the patient have severe life threatening allergies?: No Does the patient have a fever or illness today?: No Has the patient ever had Guillain-[place] Syndrome?: No Has the patient ever had any past reaction to a flu shot?: No Immunizations Fluarix [id number] (PF) 45 mcg (15 mcg x 3)/0.5 mL IM syringe Performing Provider: Elenita Bray PA-C [facility] Administered by: Shasta Stover CMA on 12/31/24 14:54 Dose Route Admin Location Dispensed Lot Number Expiration Date [employer] Pinner 0.5 mL IM Right Deltoid 0.5 mL [id number] 09/06/25 [id number] Soonr VIS Given Date VIS Provided VIS Publication Date 12/31/24 Single Vaccine 24 Eligibility Eligibility Date Funding Source Not [facility] Eligible 12/31/24 Private Results Reviewed Results Reviewed: - Labs: Complete blood count normal, hemoglobin A1c at 5.2, fasting glucose at 103 mg/dL, slightly elevated bilirubin. - Imaging: Previous imaging confirmed kidney stones on the right side. Coding Level of Care Code Est Pt Level 4 (91718) Complex EM visit Add On G2211 Diagnoses Left elbow pain M25.522 Left forearm pain M79.632 Left arm swelling M79.89 HH (hiatus hernia) K44.9 Gastroesophageal reflux disease, unspecified whether esophagitis present K21.9 Esophagitis presence: esophagitis presence not specified Kidney stones N20.0 Vitamin D deficiency E55.9 Additional Codes PHQ-9 - 64830 - PHQ-9 Billing: Yes ([id number]) Assessment & Plan Assessment & Plan (1) Left elbow pain: Code(s): M25.522 - Pain in left elbow Category: Medical Plan: The patient will undergo an x-ray of the elbow and forearm to rule out any other underlying conditions. An ultrasound will also be performed to ensure there are no blood clots, especially considering recent travel history. The patient is advised to take meloxicam and a muscle relaxer to manage inflammation and pain. A short course of prednisone is prescribed to further reduce inflammation. The patient is advised to consider physical therapy or orthopedic consultation if symptoms persist despite medication. (2) Left forearm pain: Code(s): M79.632 - Pain in left forearm Category: Medical Plan: The patient will undergo an x-ray of the elbow and forearm to rule out any other underlying conditions. An ultrasound will also be performed to ensure there are no blood clots, especially considering recent travel history. The patient is advised to take meloxicam and a muscle relaxer to manage inflammation and pain. A short course of prednisone is prescribed to further reduce inflammation. The patient is advised to consider physical therapy or orthopedic consultation if symptoms persist despite medication. (3) Left arm swelling: Code(s): M79.89 - Other specified soft tissue disorders Category: Medical Plan: The patient will undergo an x-ray of the elbow and forearm to rule out any other underlying conditions. An ultrasound will also be performed to ensure there are no blood clots, especially considering recent travel history. The patient is advised to take meloxicam and a muscle relaxer to manage inflammation and pain. A short course of prednisone is prescribed to further reduce inflammation. The patient is advised to consider physical therapy or orthopedic consultation if symptoms persist despite medication. (4) HH (hiatus hernia): Code(s): K44.9 - Diaphragmatic hernia without obstruction or gangrene Category: Medical Plan: The patient is advised to continue taking omeprazole and Pepcid to manage symptoms of GERD associated with the hiatal hernia. (5) GERD (gastroesophageal reflux disease): Code(s): K21.9 - Gastro-esophageal reflux disease without esophagitis Category: Medical Qualifiers: Esophagitis presence: esophagitis presence not specified Qualified Code(s): K21.9 - Gastro-esophageal reflux disease without esophagitis Plan: The patient is advised to continue current medications to manage GERD and reduce the risk of esophageal complications. (6) Kidney stones: Code(s): N20.0 - Calculus of kidney Category: Medical Plan: The patient is advised to maintain adequate hydration to facilitate the passage of kidney stones. (7) Vitamin D deficiency: Code(s): E55.9 - Vitamin D deficiency, unspecified Category: Medical Plan: The patient is prescribed vitamin D supplements to address the deficiency. Plan Plan Patient was informed and verbally consented to the use of an ambient scribe for clinic note documentation during this visit. 1. Tendonitis The patient will undergo an x-ray of the elbow and forearm to rule out any other underlying conditions. An ultrasound will also be performed to ensure there are no blood clots, especially considering recent travel history. The patient is advised to take meloxicam and a muscle relaxer to manage inflammation and pain. A short course of prednisone is prescribed to further reduce inflammation. 2. Tennis Elbow The patient is advised to consider physical therapy or orthopedic consultation if symptoms persist despite medication. 3. Hiatal Hernia The patient is advised to continue taking omeprazole and Pepcid to manage symptoms of GERD associated with the hiatal hernia. 4. Gastroesophageal Reflux Disease (Gerd) The patient is advised to continue current medications to manage GERD and reduce the risk of esophageal complications. 5. Kidney Stones The patient is advised to maintain adequate hydration to facilitate the passage of kidney stones. 6. Vitamin D Deficiency The patient is prescribed vitamin D supplements to address the deficiency. During the visit, I discussed with the patient the management of his elbow pain, suspected to be tendonitis or tennis elbow, and the importance of imaging to rule out other conditions. We also reviewed his GERD and hiatal hernia management, emphasizing the need to continue current medications to prevent complications. The patient was advised on maintaining hydration for kidney stone management and the importance of vitamin D supplementation. Orders: Orders Lipid Panel Today Z00.00 - Encounter for general adult medical examination without abnormal findings XR forearm LT 2V Today M25.522 - Pain in left elbow, M79.632 - Pain in left forearm, M79.89 - Other specified soft tissue disorders US venous duplex UE LT Today M25.522 - Pain in left elbow, M79.632 - Pain in left forearm, M79.89 - Other specified soft tissue disorders Influenza [id number] Immunization Today Z23 - Encounter for immunization XR elbow LT min 3V Today M25.522 - Pain in left elbow, M79.632 - Pain in left forearm, M79.89 - Other specified soft tissue disorders Medications: New prednisone 20 mg PO DAILY 5 tabs 0RF 5 days Refilled cholecalciferol (vitamin D3) 25 mcg PO DAILY 90 caps 3RF Patient Instructions: - Take meloxicam and muscle relaxers as prescribed to manage elbow pain. - Continue taking omeprazole and Pepcid for GERD management. - Maintain adequate hydration to help pass kidney stones. - Take vitamin D supplements as prescribed. - Schedule and complete the x-ray and ultrasound as ordered.
--- OUTSIDE RECORDS SUMMARY | 2024-12-31 16:23 | XMS_ITS | Encounter Summary ---
Author Organization [facility] Address [address] [place] [address] Phone Care Team Providers Care Mammography Tech Name Role Phone Les Robledo DO Primary Care Provider [phone] Encounter Details Date Type Department Care Team ([facility] st Contact Info) Description 04/25/2017 Procedure Pass OR Admitting Dept - Virtual Department [address] [place] [address] Social History Tobacco Use Types Packs/Day Years Used Date Smoking Tobacco: Never Smokeless Tobacco: Never Alcohol Use Standard Drinks/Week Comments Yes 3 (1 standard drink = 0.6 oz pur e alcohol) Sex and Gender Information Value Date Recorded Sex Assigned at Not on file Legal Sex Male 1:42 PM EST Gender Identity Not on file Sexual Orientation Not on file documented as of this encounter Plan of Treatment Not on file documented as of this encounter Visit Diagnoses Not on filedocumented in this encounter Care Teams Mammography Tech Relationship Specialty Start Date End Date Les Robledo DO [address] [address] PCP - General Family Medicine 04/01/17 documented as of this encounter Additional Source Comments The information contained in this document represents components of the legal health record. It is not the complete legal health record.[facility]
--- OUTSIDE RECORDS SUMMARY | 2024-12-31 16:23 | XMS_ITS | Patient Health Record ---
Author Organization [facility] Address [address] [place] [address] Care Team Providers Care Electric Arc Welder Name Role Phone Meena (RETIRED) Les LERNER Primary Care Provide r Unavailable Jair Kwok Unavailable [phone] Reason For Referral No Information Problems Problem Type SNOMED Code ICD Code Onset Dates Problem Status W/U Status Risk Notes Problem Chronic nonalcoholic liver disease (52284461) Other chronic nonalcoholic liver disease (571.8) Active confirmed Problem Liver function tests abnormal (422998693) Nonspecific abnormal results of liver function study (794.8) Active confirmed Plan Of Treatment Future Test Test Name Order Date LIVER PROFILE 01/10/2011 Insurance Providers Payer Name Payer Address Payer Phone Subscriber Number Group Number Insured Name Patient Relationship to Insured Coverage Start Date Coverage End Date [facility] [address] [place] [phone] [id number] FLORIDALMA GARRIDO Self - patient is the insured Medical (General) History Medical History History ICD Code Fatty liver his only new history is that of sleep apnea, for which he uses a CPAP machine at home Elevated LFT's ? Hyperlipidemia Denies [place],DM,CVA,Lung disease,renal dise ase Surgical History Surgery Date(Month/Year) as per previous records, no new history since I last saw him
--- OUTSIDE RECORDS SUMMARY | 2024-12-31 16:23 | XMS_ITS | Clinical Summary ---
Author Organization [facility] Address [address] [place] [address] Phone Care Team Providers Care Maid Cleaning Cooking Name Role Phone Les Robledo DO Primary Care Provider [phone] Allergies No known active allergies Medications No known medications Social History Tobacco Use Types Packs/Day Years Used Date Smoking Tobacco: Never Smokeless Tobacco: Never Alcohol Use Standard Drinks/Week Comments Yes 3 (1 standard drink = 0.6 oz pur e alcohol) Education Answer Date Recorded Are you interested in more education? Not on giuliana e 07/05/2022 Are you concerned about learning? Not on file 07/05/2022 No 07/05/2022 No 07/05/2022 Digital Access Answer Date Recorded No 08/03/2022 No 08/03/2022 No 08/03/2022 Reliable internet access at home? Not on file 08/03/2022 Device with a working camera? Not on file Sex and Gender Information Value Date Recorded Sex Assigned at Not on file Legal Sex Male 1:42 PM EST Gender Identity Not on file Sexual Orientation Not on file Last Filed Vital Signs Vital Sign Reading Time Taken Comments Blood Pressure - - Pulse - - Temperature - - Respiratory Rate - - Oxygen Saturation - - Inhaled Oxygen Concentration - - Weight 93 kg (205 lb) 04/11/2017 1:48 PM EST Height 171.5 cm (5' 7.5 ) 04/11/2017 1:48 PM EST Body Mass Index 31.63 04/11/2017 1:48 PM EST Plan of Treatment Health Maintenance Due Date Last Done Comments Adult Td,Tdap Booster 1967 LIPID PANEL 1967 DEPRESSION SCREENING 1979 HEPATITIS C SCREENING 08/18/1985 HIV ONE-TIME SCREENING (18-65 YEARS) 08/18/1985 COLOGUARD 08/18/2012 COLONOSCOPY 08/18/2012 COLORECTAL CANCER SCREENING 08/18/2012 FIT TEST 08/18/2012 FOBT 08/18/2012 SIGMOIDOSCOPY 08/18/2012 VIRTUAL COLONOSCOPY 08/18/2012 PNEUMOCOCCAL VACCINES (50+ years) (1 of 1 - PCV) 08/18/2017 ZOSTER VACCINES (1 of 2) 08/18/2017 INFLUENZA VACCINE (#1) 2024 , 01/11/2019, 12/31/2016, Additional history exists COVID-19 VACCINE (3 - 2024- season) 2024 06/30/2020, 06/03/2020 RSV VACCINE (1 - 1-dose 75+ series) 08/18/2042 SMOKING STATUS SCREENING (Once After 26 Yrs) Completed 04/11/2017 HEPATITIS A VACCINES Aged Out No long er eligible based on patient's age to complete this topic HIB VACCINES Aged Out No longer eligi ble based on patient's age to complete this topic MENINGOCOCCAL VACCINES (ACWY) Aged Out No longer eligible based on patient's age to complete this topic MENINGOCOCCAL VACCINES (B) Aged Out N o longer eligible based on patient's age to complete this topic Medical Devices Not on file Insurance H[facility] [address] [place], [place] [id number] [facility] [address] [place] [address] [place] [address] [place], [place] [address] Care Teams Maid Cleaning Cooking Relationship Specialty Start Date End Date Les Robledo DO [address] [place] [id number] PCP - General Family Medicine 04/01/17 Additional Source Comments The information contained in this document represents components of the legal health record. It is not the complete legal health record.[facility]
== END 2024-12-31 15:48 | disposition home or self-care (01) ==
LOC: HO.HMCSH 14:31
PROVIDERS: PCP Physician Assistant Medical; Visit Provider Physician Assistant Medical
DX: M25.522 Pain in left elbow (principal); M79.632 Pain in left forearm; M79.89 Other specified soft tissue disorders; K44.9 Diaphragmatic hernia without obstruction or gangrene; K21.9 Gastro-esophageal reflux disease without esophagitis; N20.0 Calculus of kidney; E55.9 Vitamin D deficiency, unspecified; Z23 Encounter for immunization

== ENCOUNTER → 2024-12-31 14:31 | Outpatient (BNVA) | payer BC, SELFPAY | PROVIDERS: PCP Physician Assistant Medical; Visit Provider Physician Assistant Medical | DX: K21.9 Gastro-esophageal reflux disease without esophagitis (principal); E55.9 Vitamin D deficiency, unspecified; M25.522 Pain in left elbow; M79.632 Pain in left forearm; M79.89 Other specified soft tissue disorders; K44.9 Diaphragmatic hernia without obstruction or gangrene; Z23 Encounter for immunization; Z87.442 Personal history of urinary calculi | CPT/HCPCS: 90471; 90656; 96127 ==

== ENCOUNTER 2025-01-04 06:45 | Outpatient (REF) | payer BC, SELFPAY ==
--- NOTE | ~2025-01-04 | XR_ITS ---
Examination: Left elbow 3 views. Left forearm 2 views. CLINICAL INDICATION: Pain. COMPARISON: None. FINDINGS: Left elbow: The joint space is maintained normal. No fracture, dislocation or lytic process seen. No joint effusion. Left forearm: There is solitary metallic button and a lucent tract along the radial tuberosity from previous intervention. Otherwise no bony abnormality seen involving the radius or the ulna. The soft tissues are normal. XR/XR elbow LT min 3V IMPRESSION: No acute fracture or dislocation left elbow or left forearm. There is small metallic button and a lucent track along the radial tuberosity from previous intervention. There is no joint effusion. Electronically signed by: Sean Shay MD 01/04/2025 07:11 AM EDT
--- NOTE | ~2025-01-04 | XR_ITS ---
Examination: Left elbow 3 views. Left forearm 2 views. CLINICAL INDICATION: Pain. COMPARISON: None. FINDINGS: Left elbow: The joint space is maintained normal. No fracture, dislocation or lytic process seen. No joint effusion. Left forearm: There is solitary metallic button and a lucent tract along the radial tuberosity from previous intervention. Otherwise no bony abnormality seen involving the radius or the ulna. The soft tissues are normal. XR/XR forearm LT 2V IMPRESSION: No acute fracture or dislocation left elbow or left forearm. There is small metallic button and a lucent track along the radial tuberosity from previous intervention. There is no joint effusion. Electronically signed by: Sean Shay MD 01/04/2025 07:11 AM EDT
--- OUTSIDE RECORDS SUMMARY | 2025-01-04 06:48 | XMS_ITS | Clinical Summary ---
Author Organization [facility] Address [address] [place] [address] Phone Care Team Providers Care Frame Builder Name Role Phone Les Robledo DO Primary Care Provider [phone] Allergies No known active allergies Medications No [...] Medical Devices Not on file Insurance [facility] [address] [place] [address]O [facility] [address] [place] [address] [place] [address] [place] [address] Care Teams Frame Builder Relationship Specialty Start Date End Date Les Robledo DO [address] [place] [id number] PCP - General Family Medicine 04/01/17 Additional Source Comments The information contained in this document represents components of the legal health record. It is not the complete legal health record.[facility]
--- OUTSIDE RECORDS SUMMARY | 2025-01-04 06:48 | XMS_ITS | Encounter Summary ---
Author Organization [facility] Address [address] [place] [address] Phone Care Team Providers Care Blade Worker Name Role Phone Les Robledo DO Primary Care Provider [phone] Encounter Details Date Type Department Care Team ([facility] st Contact Info) Description 04/25/2017 Procedure Pass OR Admitting Dept - Virtual Department [address] [place] [address] Social History Tobacco Use Types Packs/Day Years [...] on filedocumented in this encounter Care Teams Blade Worker Relationship Specialty Start Date End Date Les Robledo DO [address] [address] PCP - General Family Medicine 04/01/17 documented as of this encounter Additional Source Comments The information contained in this document represents components of the legal health record. It is not the complete legal health record.[facility]
--- OUTSIDE RECORDS SUMMARY | 2025-01-04 06:49 | XMS_ITS | Patient Health Record ---
Author Organization [facility] Address [address] [place] [address] Care Team Providers Care Forest Worker Name Role Phone Meena (RETIRED) Les LERNER Primary Care Provide r Unavailable Jair Kwok Unavailable [phone] Reason For Referral No Information Problems Problem Type SNOMED Code ICD Code Onset Dates Problem Status W/U Status Risk Notes Problem Chronic nonalcoholic liver disease (53629519) Other chronic nonalcoholic liver disease (571.8) Active confirmed Problem Liver function tests abnormal (705441539) Nonspecific abnormal results of liver function study (794.8) Active confirmed Plan Of Treatment Future Test Test Name Order Date LIVER PROFILE 01/10/2011 Insurance Providers Payer Name Payer Address Payer Phone Subscriber Number Group Number Insured Name Patient Relationship to Insured Coverage Start Date Coverage End Date [employer] [address] [place] [address] [id number] FLORIDALMA GARRIDO Self - patient is the insured Medical (General) History Medical History History ICD Code Fatty liver his only new history is that of sleep apnea, for which he uses a CPAP machine at home Elevated LFT's ? Hyperlipidemia Denies ID,DM,CVA,Lung disease,renal dise ase Surgical History Surgery Date(Month/Year) as per previous records, no new history since I last saw him
[2025-01-04 08:15] LABS: Cholesterol 178 mg/dL (<200); HDL Cholesterol 33 mg/dL (>40); Triglycerides 219 mg/dL (<150)
== END 2025-01-04 06:46 | disposition home or self-care (01) ==
LOC: HO.XRAY 06:45
PROVIDERS: PCP Physician Assistant Medical; Visit Provider Physician Assistant Medical
DX: Z00.00 Encounter for general adult medical examination without abnormal findings (principal); M25.522 Pain in left elbow; M79.632 Pain in left forearm; M79.89 Other specified soft tissue disorders; Z13.6 Encounter for screening for cardiovascular disorders
CPT/HCPCS: 36415; 73080; 73090; 80061

== ENCOUNTER → 2025-01-04 06:58 | Outpatient (BNV) | payer BC, SELFPAY | PROVIDERS: PCP Physician Assistant Medical; Visit Provider Radiology Diagnostic Radiology | DX: M25.522 Pain in left elbow (principal); M79.632 Pain in left forearm | CPT/HCPCS: 73080; 73090 ==

== ENCOUNTER 2025-01-05 15:15 | Outpatient (REF) | payer BC, SELFPAY ==
--- NOTE | ~2025-01-05 | US_ITS ---
EXAMINATION: US TRIPLEX UPPER EXTREMITY, LEFT CLINICAL INFORMATION: M25.522 - Pain in left elbow COMPARISON: None available. TECHNIQUE: Color-flow triplex imaging with spectral analysis and compression Doppler was performed on the left upper extremity. FINDINGS: The left internal jugular, subclavian, and axillary veins are patent and free of thrombus. The imaged segment of the left brachiocephalic vein is patent. Spectral doppler waveforms are normal. The brachial, basilic, cephalic, radial, and ulnar veins are patent and compressible. US/US venous duplex UE LT IMPRESSION: No evidence of deep venous thrombosis involving the left upper extremity. Electronically signed by: Luís Pringle MD 01/05/2025 03:45 PM EDT
--- OUTSIDE RECORDS SUMMARY | 2025-01-05 19:38 | XMS_ITS | Clinical Summary ---
Author Organization [facility] Address [address] [place] [address] Phone Care Team Providers Care Gettering Filament Machine Operator Name Role Phone Les Robledo DO Primary Care Provider [phone] Allergies No known active allergies Medications No [...] Medical Devices Not on file [facility] [address] [place] [id number] [place] [address] [place] [address] [place] [address] [place] [address] Care Teams Gettering Filament Machine Operator Relationship Specialty Start Date End Date Les Robledo DO [address] [place] [id number] PCP - General Family Medicine 04/01/17 Additional Source Comments The information contained in this document represents components of the legal health record. It is not the complete legal health record.[facility]
--- OUTSIDE RECORDS SUMMARY | 2025-01-05 19:38 | XMS_ITS | Encounter Summary ---
Author Organization [facility] Address [address] [place] [address] Phone Care Team Providers Care Circuit Rider Name Role Phone Les Robledo DO Primary Care Provider [phone] Encounter Details Date Type Department Care Team ([facility] st Contact Info) Description 04/25/2017 Procedure Pass OR Admitting Dept - Virtual Department [address] [place] [address] Social History Tobacco Use Types Packs/Day Years [...] on filedocumented in this encounter Care Teams Circuit Rider Relationship Specialty Start Date End Date Les Robledo DO [address] [address] PCP - General Family Medicine 04/01/17 documented as of this encounter Additional Source Comments The information contained in this document represents components of the legal health record. It is not the complete legal health record.[facility]
--- OUTSIDE RECORDS SUMMARY | 2025-01-05 19:38 | XMS_ITS | Patient Health Record ---
Author Organization [facility] Address [address] [place] [address] Care Team Providers Care Telephone Operator Chief Name Role Phone Meena (RETIRED) Les LERNER Primary Care Provide r Unavailable Jair Kwok Unavailable [phone] Reason For Referral No Information Problems Problem Type SNOMED Code ICD Code Onset Dates Problem Status W/U Status Risk Notes Problem Chronic nonalcoholic liver disease (38402746) Other chronic nonalcoholic liver disease (571.8) Active confirmed Problem Liver function tests abnormal (431025041) Nonspecific abnormal results of liver function study (794.8) Active confirmed Plan Of Treatment Future Test Test Name Order Date LIVER PROFILE 01/10/2011 Insurance Providers Payer Name Payer Address Payer Phone Subscriber Number Group Number Insured Name Patient Relationship to Insured Coverage Start Date Coverage End Date [facility] [address] [place] [address] [id number] FLORIDALMA GARRIDO Self - patient is the [...]
== END 2025-01-05 15:16 | disposition home or self-care (01) ==
LOC: HO.US 15:15
PROVIDERS: PCP Physician Assistant Medical; Visit Provider Physician Assistant Medical
DX: M25.522 Pain in left elbow (principal); M79.632 Pain in left forearm; R60.0 Localized edema
CPT/HCPCS: 93971

== ENCOUNTER → 2025-01-05 15:17 | Outpatient (BNV) | payer BC, SELFPAY | PROVIDERS: PCP Physician Assistant Medical; Visit Provider Radiology Diagnostic Radiology | DX: M25.522 Pain in left elbow (principal) | CPT/HCPCS: 93971 ==